=== PATIENT | male | born 1945 | race Caucasian/White ===

== ENCOUNTER 2016-05-19 21:55 | Inpatient (IN) | payer MEDICARE, OTHER ==
[~2016-05-19] VITALS: Ht 172.7 cm; Wt 92.0 kg
[~2016-05-19 21:55] MED LIST: ATOR10; CARV12.5; CEFT250T8 PO; ECOT81TA2; FOSI20; LASI20TA; LORT5TAB PO; WARF7.5; [UNRECOGNIZED DRUG - CODE] BOTH EARS
[2016-05-19] MEDS ORDERED: COUM5TAB PO (22:13)
[2016-05-19] MEDS ORDERED: HYDR-3516 PO (22:13)
[2016-05-19] MEDS ORDERED: FOSI20TA PO (22:13)
[2016-05-19] MEDS ORDERED: LIPI10TA PO (22:13)
[2016-05-19] MEDS ORDERED: FURO20TA PO (22:13)
[2016-05-19] MEDS ORDERED: ASPI1TAB69 PO (22:13)
[2016-05-19 22:15] VITALS: BP 162/59; PULSE 72; RESP 20; TEMP 101.4; O2SAT 93
[2016-05-19] MEDS ORDERED: SODIUM CHLOR 0.9% 1000 ML INJ 1,000 ML IV ONE (22:30)
[2016-05-19 22:52] LABS: AUTOMATED NEUTROPHIL # 9.8 TH/MM3 (1.8-7.7); BASOPHIL # 0.3 TH/MM3 (0-0.2); BASOPHIL % 2.8 % (0.0-2.0); EOSINOPHIL # 0.1 TH/MM3 (0-0.4); EOSINOPHIL % 1.1 % (0.0-4.0); HEMATOCRIT 35.9 % (39.0-51.0); HEMO FLAGS DIFF FINAL; LYMPH % 10.8 % (9.0-44.0); LYMPHOCYTE # 1.3 TH/MM3 (1.0-4.8); MEAN CELL VOLUME 89.1 FL (80.0-100.0); MEAN CORPUSCULAR HGB CONC 34.8 % (32.0-36.0); MONO % 5.4 % (0.0-8.0); NEUT % 79.9 % (16.0-70.0); PLATELET COUNT 167 TH/MM3 (150-450); RED BLOOD COUNT 4.03 MIL/MM3 (4.50-5.90); RED CELL DISTRIBUTION WIDTH 14.2 % (11.6-17.2); WHITE BLOOD COUNT 12.2 TH/MM3 (4.0-11.0)
[2016-05-19 22:56] VITALS: RESP 18; O2SAT 98
[2016-05-19 22:59] LABS: BLOOD, URINE TRACE (NEG); GLUCOSE,URINE NEG (NEG); KETONE, URINE NEG (NEG); NITRITE,URINE NEG (NEG); PH, URINE 5.5 (5.0-8.5)
[2016-05-19 23:00] LABS: CHLORIDE 100 MEQ/L (98-107); POTASSIUM 3.9 MEQ/L (3.5-5.1); SODIUM (NA) 135 MEQ/L (136-145)
[2016-05-19 23:03] LABS: ANION GAP 10 MEQ/L (5-15); BICARBONATE 25.2 MEQ/L (21.0-32.0)
[2016-05-19 23:04] LABS: BLOOD UREA NITROGEN 14 MG/DL (7-18); INTERNATIONAL NORMALIZED RATIO 2.1 RATIO; PROTHROMBIN TIME - PATIENT 24.2 SEC (9.8-11.6)
[2016-05-19 23:06] LABS: URINE COLOR AMBER (YELLW/STRAW)
[2016-05-19 23:07] LABS: ALT (GPT) 30 U/L (12-78); AST (GOT) 19 U/L (15-37); GLOMERULAR FILTRATION RATE 73 ML/MIN (>89)
[2016-05-19 23:07] LABS: COMMENT (UR) CULT NOT INDICATED; CULTURE IF INDICATED CULT NOT INDICATED; RBC, URINE 0-3 /hpf (0-3); SQUAMOUS EPITHELIAL CELL URINE 0-5 /hpf (0-5); WBC, URINE 0-2 /hpf (0-5)
[2016-05-19 23:08] LABS: TOTAL BILIRUBIN ADULT 1.5 MG/DL (0.2-1.0)
--- NOTE | 2016-05-19 23:08 | RADHPO ---
EXAM DATE/TIME: 05/19/2016 22:49 [facility] COMPARISON: No previous studies available for comparison. INDICATIONS : Weakness, body aches and chills starting today MEDICAL HISTORY : None. SURGICAL HISTORY : CABG. Stent placement ENCOUNTER: Initial ACUITY: 1 day PAIN SCORE: 0/10 LOCATION: Bilateral chest FINDINGS: A single view of the chest demonstrates the lungs to be symmetrically aerated without evidence of mas s, infiltrate or effusion. Mild cardiomegaly. Status post median sternotomy and heart valve replaceme nt. The cardiomediastinal contours are unremarkable. Osseous structures are intact. CONCLUSION: 1. No acute cardiopulmonary disease. 2. Cardiomegaly and heart valve replacement. Aki Bhatt MD on May 19, 2016 at 23:05 Board Certified Radiologist. This report was verified electronically.
[2016-05-19 23:09] LABS: ALKALINE PHOSPHATASE 79 U/L (45-117)
[2016-05-19 23:15] VITALS: TEMP 99.2
[2016-05-19] MEDS ORDERED: PIPERACIL-TAZO 4.5 GM PREMIX 100 ML IV ONE (23:30)
[2016-05-19] MEDS ORDERED: VANCOMYCIN INJ 1,000 MG in SODIUM CHLOR 0.9% 250 ML INJ 250 ML IV ONE (23:30)
[2016-05-19] MEDS ORDERED: ACETAMINOPHEN 325 MG TAB PO ONE (23:30)
--- NOTE | 2016-05-19 23:41 | PD ---
HPI Chief Complaint: Fever Time Seen by Provider: 22:12 Travel History International Travel<30 days: No Contact w/Intl Traveler<30days: No Traveled to known affect area: No History of Present Illness HPI 71-year-old male came to the emergency room brought by EMS with history of fever , bad shaking chills that started all of a sudden. His is here and she says that patient was fine up until 2 hours ago when all of a sudden he started shaking violently and complaining that he was cold. She had to cover him with multiple layers of blanket at which point she noticed that his lips were turning blue. Patient was awake and talking the entire time. got anxious and concerned and called 911. His temperature upon arrival was 101.9. Currently patient says that he is sweating a lot and feels actually warm. He is awake and answering questions appropriately. Denies any cough, abdominal pain, vomiting, diarrhea or dysuria. No history of sick contacts. Patient mentioned to me that his right knee which has been replaced couple years ago has been bothering him. [facility] Past Medical History Narrative Medical List of his past medical history reviewed from the nursing note. High Cholesterol: Yes Chemotherapy: Yes Diminished Hearing: No Hypertension: Yes Tetanus Vaccination: < 5 Years Influenza Vaccination: Yes Past Surgical History Abdominal Surgery: Yes (hernia 1998) Cardiac Surgery: Yes (mitral and aortic valve replacement 2002) Coronary Stent: Yes (2001) Tonsillectomy: Yes Social History Alcohol Use: Yes (one mixed drink in a month) Tobacco Use: No Substance Use: No Allergies-Medications (Allergen,Severity, Reaction): Coded Allergies: No Known Allergies (Verified , 05/19/16) Comments No known drug allergies. Reported Meds & Prescriptions Reported Meds & Active Scripts Active Reported Coumadin (Warfarin) 5 Mg Tab 5 Mg PO DAILY Hydrocodone-Acetaminophen 5-325 mg Tab 1 Tab PO Q6H PRN Furosemide 20 Mg Tab 20 Mg PO DAILY Fosinopril (Fosinopril Sodium) 20 Mg Tab 20 Mg PO DAILY Lipitor (Atorvastatin Calcium) 10 Mg Tab 10 Mg PO HS Aspirin 81 Mg Tabdr 81 Mg PO DAILY Narrative Medication List of his home medications reviewed from the nursing note. Review of Systems Except as stated in HPI: all other systems reviewed are Neg Physical Exam Narrative GENERAL: Awake, alert, anxious, mild distress SKIN: Warm and diaphoretic. HEAD: Atraumatic. Normocephalic. EYES: Pupils equal and round. No scleral icterus. No injection or drainage. ENT: No nasal bleeding or discharge. Mucous membranes pink and moist. NECK: Trachea midline. No JVD. CARDIOVASCULAR: Regular rate and rhythm. No murmur appreciated. RESPIRATORY: No accessory muscle use. Clear to auscultation. Breath sounds equal bilaterally. GASTROINTESTINAL: Abdomen soft, non-tender, nondistended. Hepatic and splenic margins not palpable. MUSCULOSKELETAL: No obvious deformities. No clubbing. No cyanosis. No edema. Right knee swelling. No skin erythema or warmth. NEUROLOGICAL: Awake and alert. No obvious cranial nerve deficits. Motor grossly within normal limits. Normal speech. PSYCHIATRIC: Appropriate mood and affect; insight and judgment normal. Data Data Last Documented VS Vital Signs Date Time Temp Pulse Resp B/P Pulse Ox O2 Delivery O2 Flow Rate FiO2 05/19/16 23:15 99.2 05/19/16 22:56 98 Room Air 05/19/16 22:56 18 05/19/16 22:15 72 162/59 Orders Complete Blood Count With Diff (05/19/16 22:21) Comprehensive Metabolic Panel (05/19/16 22:21) Prothrombin Time / Inr (Pt) (05/19/16 22:21) Lactic Acid Sepsis Protocol (05/19/16 22:21) Urinalysis - C+S If Indicated (05/19/16 22:21) Influenzae A/B Antigen (05/19/16 22:21) Blood Culture (05/19/16 22:21) Chest, Single Ap (05/19/16 22:21) Blood Glucose (05/19/16 22:21) Ecg Monitoring (05/19/16 22:21) Iv Access Insert/Monitor (05/19/16 22:21) Oximetry (05/19/16 22:21) Oxygen Administration (05/19/16 22:21) Sodium Chlor 0.9% 1000 Ml Inj (Ns 1000 M (05/19/16 22:30) Acetaminophen (Tylenol) (05/19/16 23:30) Piperacil-Tazo 4.5 Gm Premix (Zosyn 4.5 (05/19/16 23:30) Vancomycin Inj (Vancomycin Inj) (05/19/16 23:30) Aspirin Ec (Ecotrin Ec) (05/20/16 09:00) Atorvastatin (Lipitor) (05/20/16 21:00) Lisinopril (Prinivil) (05/20/16 09:00) Warfarin (Coumadin) (05/20/16 16:00) Admit Order (Ed Use Only) (05/19/16 23:41) Labs Laboratory Tests Test 05/19/16 05/19/16 22:30 22:44 Urine Color JACQUELINE Urine Turbidity CLEAR Urine pH 5.5 Urine Specific [place] 1.020 Urine Protein NEG mg/dL Urine Glucose (UA) NEG mg/dL Urine Ketones NEG mg/dL Urine Occult Blood TRACE Urine Nitrite NEG Urine Bilirubin NEG Urine Leukocyte Esterase NEG Urine RBC 0-3 /hpf Urine WBC 0-2 /hpf Urine Squamous Epithelial 0-5 /hpf Cells Urine Bacteria NONE /hpf Microscopic Urinalysis Comment CULT NOT INDICATED White Blood Count 12.2 TH/MM3 Red Blood Count 4.03 MIL/MM3 Hemoglobin 12.5 GM/DL Hematocrit 35.9 % Mean Corpuscular Volume 89.1 FL Mean Corpuscular Hemoglobin 31.0 PG Mean Corpuscular Hemoglobin 34.8 % Concent Red Cell Distribution Width 14.2 % Platelet Count 167 TH/MM3 Mean Platelet Volume 8.6 FL Neutrophils (%) (Auto) 79.9 % Lymphocytes (%) (Auto) 10.8 % Monocytes (%) (Auto) 5.4 % Eosinophils (%) (Auto) 1.1 % Basophils (%) (Auto) 2.8 % Neutrophils # (Auto) 9.8 TH/MM3 Lymphocytes # (Auto) 1.3 TH/MM3 Monocytes # (Auto) 0.7 TH/MM3 Eosinophils # (Auto) 0.1 TH/MM3 Basophils # (Auto) 0.3 TH/MM3 CBC Comment DIFF FINAL Differential Comment Prothrombin Time 24.2 SEC Prothromb Time International 2.1 RATIO Ratio Sodium Level 135 MEQ/L Potassium Level 3.9 MEQ/L Chloride Level 100 MEQ/L Carbon Dioxide Level 25.2 MEQ/L Anion Gap 10 MEQ/L Blood Urea Nitrogen 14 MG/DL Creatinine 1.00 MG/DL Estimat Glomerular Filtration 73 ML/MIN Rate Random Glucose 125 MG/DL Calcium Level 9.3 MG/DL Total Bilirubin 1.5 MG/DL Aspartate Amino Transf 19 U/L (AST/SGOT) Alanine Aminotransferase 30 U/L (ALT/SGPT) Alkaline Phosphatase 79 U/L Total Protein 7.5 GM/DL Albumin 3.9 GM/DL Lactic Acid Level 2.1 mmol/L MDM Medical Decision Making Medical Screen Exam Complete: Yes Emergency Medical Condition: Yes Medical Record Reviewed: Yes Differential Diagnosis Sepsis, pneumonia, UTI, influenza Narrative Course 11:35 PM blood test results of back and patient has somewhat of a leukocytosis and elevated lactic acid. Patient is receiving IV fluid as per sepsis protocol. Chest x-ray and urine analysis is within normal limits. Influenza was negative. I went back to reassess the patient and talked to the and I noticed that patient was getting his shaking chills again. Repeat temperature was 99.9 oral. Patient does not recall any recent invasive procedures being done since my concern at this point is infective endocarditis since no other source for this infection can be detected. I have ordered IV antibiotic as per sepsis protocol. I would like to admit this patient until the blood culture results come back. In my opinion patient is bacteremic until proven otherwise. Critical Care Narrative Aggregate critical care time was 30 minutes. Time to perform other separately billable procedures was not included in the critical care time. My time did not include minutes spent treating any other patients simultaneously or on activities that did not directly contribute to the patient's treatment. The services I provided to this patient were to treat and/or prevent clinically significant deterioration that could result in: Sepsis, sepsis protocol I provided critical care services requiring my management, as noted below: Chart data review, documentation time, medication orders and management, vital sign assessments/reviewing monitor data, ordering and reviewing lab tests, ordering and interpreting/reviewing x-rays and diagnostic studies, care of the patient and discussion of the patient with the admitting physicians. Procedures EKG Prior to Arrival: No Diagnosis Primary Impression: Sepsis Qualified Code: A41.9 - Sepsis, due to unspecified organism Additional Impressions: Fever Qualified Code: R50.9 - Fever, unspecified fever cause Arthralgia of right knee Admitting Information Admitting Physician Requests: Kaykay Hoang MD May 19, 2016 23:41
[2016-05-19] MEDS ORDERED: NALOXONE HCL 0.4 MG/ML AMP IV PRN (23:45)
[2016-05-19] MEDS ORDERED: SODIUM CHLORIDE 0.9% FLUSH 5 ML FLUSH FLUSH PRN (23:45)
[2016-05-19] MEDS ORDERED: DO NOT ADM ANY ANTICOAGULANT DRUGS XX PRN (23:45)
[2016-05-20] VITALS (9 sets, daily range): BP systolic 114–149; BP diastolic 51–82; PULSE 63–87; RESP 14–18; TEMP 97–104.1; O2SAT 95–99
[2016-05-20 00:44] LABS: LACTIC ACID GHOST NOT REPORTABLE
[2016-05-20] MEDS ORDERED: VANCOMYCIN 1,000 MG/NS 250 ML IV ONE ×2 (01:00)
--- NOTE | 2016-05-20 02:06 | RADHPO ---
EXAM DATE/TIME: 05/20/2016 00:10 [facility] COMPARISON: No previous studies available for comparison. INDICATIONS : Right knee pain starting today with no known trauma MEDICAL HISTORY : None. SURGICAL HISTORY : Total knee replacement, right. ENCOUNTER: Initial ACUITY: 1 day PAIN SCORE: 6/10 LOCATION: Right entire knee FINDINGS: Four view examination of the right knee demonstrates no evidence of fracture or dislocation. Right kn ee arthroplasty. No hardware loosening. Possible small joint effusion. CONCLUSION: Right knee arthroplasty without fracture. There may be a small effusion. Aki Bhatt MD on May 20, 2016 at 2:03 Board Certified Radiologist. This report was verified electronically.
[2016-05-20 05:30] LABS: AUTOMATED NEUTROPHIL # 18.9 TH/MM3 (1.8-7.7); BASOPHIL # 0.1 TH/MM3 (0-0.2); BASOPHIL % 0.5 % (0.0-2.0); EOSINOPHIL % 0.2 % (0.0-4.0); HEMATOCRIT 34.3 % (39.0-51.0); LYMPH % 6.7 % (9.0-44.0); LYMPHOCYTE # 1.5 TH/MM3 (1.0-4.8); MEAN CELL VOLUME 89.3 FL (80.0-100.0); MEAN CORPUSCULAR HEMOGLOBIN 29.8 PG (27.0-34.0); MEAN CORPUSCULAR HGB CONC 33.3 % (32.0-36.0); MONO % 7.9 % (0.0-8.0); NEUT % 84.7 % (16.0-70.0); PLATELET COUNT 155 TH/MM3 (150-450); RED BLOOD COUNT 3.84 MIL/MM3 (4.50-5.90); RED CELL DISTRIBUTION WIDTH 14.1 % (11.6-17.2); WHITE BLOOD COUNT 22.3 TH/MM3 (4.0-11.0)
[2016-05-20 05:33] LABS: HEMO FLAGS DIFF FINAL
[2016-05-20 05:44] LABS: POTASSIUM 4.1 MEQ/L (3.5-5.1)
[2016-05-20] MEDS: PIPERACIL-TAZO 4.5 GM PREMIX 100 ML IV SCH ×3 (06:28→21:57)
[2016-05-20] MEDS ORDERED: ACETAMINOPHEN 500 MG CPLT PO ONE (09:00)
[2016-05-20] MEDS: ENOXAPARIN SODIUM 40 MG/0.4 ML SYRINGE SQ SCH (09:15)
[2016-05-20] MEDS: ASPIRIN EC 81 MG TABEC PO SCH (09:15)
[2016-05-20] MEDS: LISINOPRIL 20 MG TAB PO SCH (09:15)
[2016-05-20] MEDS: SODIUM CHLORIDE 0.9% FLUSH 5 ML FLUSH FLUSH SCH ×2 (09:15→20:40)
[2016-05-20] MEDS ORDERED: Vancomycin Consult Pharmacy 1 EA OTHER SCH ×2 (12:00)
[2016-05-20] MEDS ORDERED: VANCOMYCIN INJ 1,000 MG in SODIUM CHLOR 0.9% 250 ML INJ 250 ML IV SCH (12:00)
--- NOTE | 2016-05-20 12:07 | HHI.HP ---
[facility] Phys[facility] Non-Staff Admission Diagnosis sepsis, fever, right knee arthralgia Diagnoses: Chief Complaint: Sudden onset of fever and chills Travel History International Travel<30 Days: No Contact w/Intl Traveler <30 Da: No Traveled to Known Affected Are: No Sepsis Criteria SIRS Criteria (2 or more): Temp > 100.9 or < 96.8, Heart rate over 90 Severe Sepsis (+one): Hypotension, Lactate >2 Criteria Outcome: Meets SIRS criteria, Meets severe sepsis criteria History of Present Illness This patient is a very pleasant 71-year-old gentleman with a history of mitral and aortic valve replacement and chronic Coumadin therapy. Patient does have an acute onset of fever, chills and shakes which started suddenly. The patient says he was at home and fine until he felt ill. There is been no previous fevers and no sick contacts, no recent procedures in no recent travel. He did have a visit from his grandson over the holiday but was fine up until the day of admission. Patient did have a fever with leukocytosis and his temperature was 1.9 with some tachycardia and the patient was admitted to the hospital with evidence of sepsis. He was given IV antibiotics cultures were taken the patient was admitted upstairs to the hospital. He is not short of breath, he denies chest pain, there is no diarrhea, no rashes, he does complain however of some right knee discomfort. He had a knee replacement done at another facility and noted to have increasing stiffness in the joint. The knee is warm but for the patient that is not unusual for him and he is ambulatory on it without any change in ambulation status. For these reasons the patient's was admitted to the hospital Review of Systems Constitutional: COMPLAINS OF: Diaphoretic episodes, Fever, Chills, Night Sweats , DENIES: Fatigue, Weight gain, Weight loss, Dizziness, Change in appetite Endocrine: DENIES: Heat/cold intolerance, Polydipsia, Polyuria, Polyphagia Eyes: DENIES: Blurred vision, Diplopia, Eye inflammation, Eye pain, Vision loss , Photosensitivity, Double Vision Ears, nose, mouth, throat: DENIES: Tinnitus, Hearing loss, Vertigo, Nasal discharge, Oral lesions, Throat pain, Hoarseness, Ear Pain, Running Nose, Epistaxis, Sinus Pain, Toothache, Odynophagia Respiratory: DENIES: Apneas, Cough, Snoring, Wheezing, Hemoptysis, Sputum production, Shortness of breath Cardiovascular: DENIES: Chest pain, Palpitations, Syncope, Dyspnea on Exertion , PND, Lower Extremity Edema, Orthopnea, Claudication Gastrointestinal: DENIES: Abdominal pain, Black stools, Bloody stools, Constipation, Diarrhea, Nausea, Vomiting, Difficulty Swallowing, Anorexia Genitourinary: DENIES: Sexual dysfunction, Urinary frequency, Urinary incontinence, Urgency, Hematuria, Dysuria, Nocturia, Penile Discharge, Testicular Pain, Testicular Swelling Musculoskeletal: COMPLAINS OF: Joint pain (chronic pain in the right knee), DENIES: Muscle aches, Stiffness, Joint Swelling, Back pain, Neck pain Integumentary: DENIES: Abnormal pigmentation, Nail changes, Pruritus, Rash Hematologic/lymphatic: DENIES: Bruising, Lymphadenopathy Immunologic/allergic: DENIES: Eczema, Urticaria Neurologic: DENIES: Abnormal gait, Headache, Localized weakness, Paresthesias, Seizures, Speech Problems, Tremor, Poor Balance Psychiatric: DENIES: Anxiety, Confusion, Mood changes, Depression, Hallucinations, Agitation, Suicidal Ideation, Homicidal Ideation, Delusions Past Family Social History Past Medical History Aortic/mitral valve replaced CAD with stent HTN Past Surgical History Mitral and aortic valve replaced Coronary stent 2 Tonsillectomy Reported Medications Reviewed in the medical record, no recent new medications Allergies: Coded Allergies: No Known Allergies (Verified , 05/19/16) Active Ordered Medications Reviewed and the medical record Family History Family history of hypertension Social History No tobacco or alcohol dependency, lives with his spouse, no recent travel and no recent procedures Physical Exam Vital Signs Vital Signs Date Time Temp Pulse Resp B/P Pulse Ox O2 Delivery O2 Flow Rate FiO2 05/20/16 09:12 102.0 80 15 131/66 96 05/20/16 07:26 99.8 73 16 122/57 96 Room Air 05/20/16 05:00 82 18 126/68 95 Room Air 05/20/16 05:00 82 18 95 Room Air 05/20/16 03:01 85 18 114/51 95 Room Air 1/12/17 03:01 18 95 Room Air 05/20/16 01:54 100.0 87 18 149/55 96 Room Air 05/20/16 00:57 18 05/20/16 00:27 94 18 96 Room Air 05/20/16 00:27 104.1 85 18 127/75 96 Room Air 05/19/16 23:15 99.2 05/19/16 22:56 98 Room Air 05/19/16 22:56 18 98 Room Air 05/19/16 22:24 20 05/19/16 22:15 101.4 72 20 162/59 93 Physical Exam GENERAL: This is a well-nourished, well-developed patient, fatigued SKIN: No rashes, ecchymoses or lesions. Cool and dry. HEAD: Atraumatic. Normocephalic. No temporal or scalp tenderness. EYES: Pupils equal round and reactive. Extraocular motions intact. No scleral icterus. No injection or drainage. ENT: Nose without bleeding, purulent drainage or septal hematoma. Throat without erythema, tonsillar hypertrophy or exudate. Uvula midline. Airway patent. NECK: Trachea midline. No JVD or lymphadenopathy. Supple, nontender, no meningeal signs. CARDIOVASCULAR: Regular rate and rhythm with a systolic murmur, no gallops, or rubs. RESPIRATORY: Clear to auscultation. Breath sounds equal bilaterally. No wheezes , rales, or rhonchi. GASTROINTESTINAL: Abdomen soft, non-tender, nondistended. No hepato-splenomegaly , or palpable masses. No guarding. MUSCULOSKELETAL: Right knee warm to touch, minimal effusion; Extremities without clubbing, cyanosis, or edema. No joint tenderness, effusion, or edema noted. No calf tenderness. Negative Homans sign bilaterally. NEUROLOGICAL: Awake and alert. Cranial nerves II through XII intact. Motor and sensory grossly within normal limits. Five out of 5 muscle strength in all muscle groups. Normal speech. Laboratory Laboratory Tests Test 05/19/16 05/19/16 05/20/16 05/20/16 22:30 22:44 02:10 05:15 Urine Color JACQUELINE Urine Turbidity CLEAR Urine pH 5.5 Urine Specific [place] 1.020 Urine Protein NEG Urine Glucose (UA) NEG Urine Ketones NEG Urine Occult Blood TRACE Urine Nitrite NEG Urine Bilirubin NEG Urine Leukocyte Esterase NEG Urine RBC 0-3 Urine WBC 0-2 Urine Squamous Epithelial 0-5 Cells Urine Bacteria NONE Microscopic Urinalysis Comment CULT NOT INDICATED White Blood Count 12.2 22.3 Red Blood Count 4.03 3.84 Hemoglobin 12.5 11.4 Hematocrit 35.9 34.3 Mean Corpuscular Volume 89.1 89.3 Mean Corpuscular Hemoglobin 31.0 29.8 Mean Corpuscular Hemoglobin 34.8 33.3 Concent Red Cell Distribution Width 14.2 14.1 Platelet Count 167 155 Mean Platelet Volume 8.6 8.5 Neutrophils (%) (Auto) 79.9 84.7 Lymphocytes (%) (Auto) 10.8 6.7 Monocytes (%) (Auto) 5.4 7.9 Eosinophils (%) (Auto) 1.1 0.2 Basophils (%) (Auto) 2.8 0.5 Neutrophils # (Auto) 9.8 18.9 Lymphocytes # (Auto) 1.3 1.5 Monocytes # (Auto) 0.7 1.8 Eosinophils # (Auto) 0.1 0.0 Basophils # (Auto) 0.3 0.1 CBC Comment DIFF FINAL DIFF FINAL Differential Comment Prothrombin Time 24.2 Prothromb Time International 2.1 Ratio Sodium Level 135 138 Potassium Level 3.9 4.1 Chloride Level 100 104 Carbon Dioxide Level 25.2 25.0 Anion Gap 10 9 Blood Urea Nitrogen 14 12 Creatinine 1.00 0.97 Estimat Glomerular Filtration 73 76 Rate Random Glucose 125 105 Calcium Level 9.3 8.6 Total Bilirubin 1.5 Aspartate Amino Transf 19 (AST/SGOT) Alanine Aminotransferase 30 (ALT/SGPT) Alkaline Phosphatase 79 Total Protein 7.5 Albumin 3.9 Lactic Acid Level 2.1 1.1 Date/Time Procedure Status Source Growth 05/19/16 23:00 Aerobic Blood Culture - Preliminary Resulted Blood Peripheral NO GROWTH IN 1 DAY 05/19/16 23:00 Anaerobic Blood Culture - Preliminary Resulted Blood Peripheral NO GROWTH IN 1 DAY 05/19/16 22:44 Influenza Types A,B Antigen (SHANITA) - Final Complete Nasal Aspirate NEGATIVE FOR FLU A AND B ANTIGEN.... Result Diagram: 05/20/1615 05/20/1615 Imaging Last Impressions Chest X-Ray 05/19/161 Signed Impressions: Service Date/Time: Thursday, May 19, 2016 22:49 - CONCLUSION: 1. No acute cardiopulmonary disease. 2. Cardiomegaly and heart valve replacement. Aki Bhatt MD Knee X-Ray 05/19/16 0000 Signed Impressions: Service Date/Time: May 00:10 - CONCLUSION: Right knee arthroplasty without fracture. There may be a small effusion. Aki Bhatt MD Septic Shock Reassessment Heart: Irregular Lungs: Clear Skin: Warm Peripheral Pulses: Bounding Right Radial Bounding Left Radial Bounding Right Popliteal Bounding Left Popliteal Bounding Right Dorsalis Pedis Bounding Left Dorsalis Pedis Bounding Right Posterior Tibial Bounding Left Posterior Tibial Capillary Refill: Brisk Assessment and Plan Problem List: (1) Sepsis ICD Code: A41.9 Status: Acute Plan: Patient septic rule out endocarditis, echocardiogram pending Right knee does not appear septic Continue IV vancomycin and Zosyn Follow blood cultures Chest x-ray on my review does not show any acute cardiopulmonary processes Urinalysis unremarkable lactic acid improved CRP/ESR pending (2) CAD (coronary artery disease) ICD Code: I25.10 Status: Acute Plan: History of stent 2, follows up with Dr. Ross Patient with a history of mitral and aortic valve replacement with Coumadin therapy, INR 2.1 (3) HTN (hypertension) ICD Code: I10 Status: Acute Code Status full code Discussed Condition With patient, spouse Physician Certification 2 Midnight Certification Type: Admission for Inpatient Services Order for Inpatient Services The services are ordered in accordance with Medicare regulations or non- Medicare payer requirements, as applicable. In the case of services not specified as inpatient-only, they are appropriately provided as inpatient services in accordance with the 2-midnight benchmark. Estimated LOS (days): 5 5 days is the estimated time the patient will need to remain in the hospital, assuming treatment plan goals are met and no additional complications. Post-Hospital Plan: Home Problem Qualifiers (1) Sepsis: Qualified Code: A41.9 - Sepsis, due to unspecified organism Asia Vela MD May 20, 2016 12:07
[2016-05-20] MEDS: VANCOMYCIN INJ 1,900 MG in SODIUM CHLORID 0.9% 500 ML INJ 500 ML IV SCH (17:42)
[2016-05-20] MEDS: WARFARIN SOD 5 MG TAB PO SCH (17:42)
[2016-05-20] MEDS: ATORVASTATIN 10 MG TAB PO SCH (20:38)
[2016-05-20] MEDS: ACETAMINOPHEN 325 MG TAB PO PRN (21:02)
[2016-05-21] VITALS (7 sets, daily range): BP systolic 132–168; BP diastolic 74–83; PULSE 66–82; RESP 15–18; TEMP 98.3–100; O2SAT 93–98
[2016-05-21] MEDS: PIPERACIL-TAZO 4.5 GM PREMIX 100 ML IV SCH ×4 (02:00→20:23)
[2016-05-21] MEDS: ACETAMINOPHEN 325 MG TAB PO PRN ×3 (02:01→20:23)
[2016-05-21] MEDS ORDERED: TEMAZEPAM 7.5 MG CAP PO ONE (02:30)
[2016-05-21] MEDS: ENOXAPARIN SODIUM 40 MG/0.4 ML SYRINGE SQ SCH (09:32)
[2016-05-21] MEDS: LISINOPRIL 20 MG TAB PO SCH (09:32)
[2016-05-21] MEDS: ASPIRIN EC 81 MG TABEC PO SCH (09:32)
[2016-05-21] MEDS: SODIUM CHLORIDE 0.9% FLUSH 5 ML FLUSH FLUSH SCH ×2 (09:33→20:23)
[2016-05-21 10:21] LABS: AUTOMATED NEUTROPHIL # 10.2 TH/MM3 (1.8-7.7); BASOPHIL % 0.3 % (0.0-2.0); EOSINOPHIL % 0.4 % (0.0-4.0); HEMATOCRIT 30.9 % (39.0-51.0); LYMPH % 9.3 % (9.0-44.0); LYMPHOCYTE # 1.1 TH/MM3 (1.0-4.8); MEAN CELL VOLUME 90.9 FL (80.0-100.0); MEAN CORPUSCULAR HEMOGLOBIN 31.1 PG (27.0-34.0); MEAN CORPUSCULAR HGB CONC 34.2 % (32.0-36.0); MONO % 8.5 % (0.0-8.0); NEUT % 81.5 % (16.0-70.0); PLATELET COUNT 130 TH/MM3 (150-450); RED CELL DISTRIBUTION WIDTH 14.8 % (11.6-17.2); WHITE BLOOD COUNT 12.3 TH/MM3 (4.0-11.0)
[2016-05-21 10:27] LABS: HEMO FLAGS DIFF FINAL
--- NOTE | 2016-05-21 10:44 | HHI.PR ---
Subjective Remarks Patient seen today in follow-up for starters /sepsis. Etiology unclear but patient does appear improved. Fever improved, leukocytosis improved. No new complaints overnight. Patient Would like to go home. I did explain to the patient that I am waiting for his blood cultures to continue to remain clear. Echocardiogram is pending today Objective Vitals Vital Signs Date Time Temp Pulse Resp B/P Pulse Ox O2 Delivery O2 Flow Rate FiO2 05/21/16 08:58 100.0 76 15 161/74 94 05/21/16 08:00 82 05/21/16 04:00 99.2 68 16 132/80 93 05/21/16 02:00 99.9 05/20/16 20:00 98.2 75 16 139/82 95 05/20/16 20:00 70 05/20/16 20:00 97.3 65 18 121/66 99 05/20/16 17:30 97.0 63 14 127/63 98 05/20/16 13:42 97.5 74 16 119/58 99 I/O 05/20/16 05/20/16 05/20/16 05/21/16 05/21/16 05/21/16 07:00 15:00 23:00 07:00 15:00 23:00 Intake Total 1700 ml 1280 ml 640 ml Output Total 500 ml 150 ml Balance 1200 ml 1130 ml 640 ml Intake Oral 1280 ml 640 ml IV Total 1700 ml Output Urine Total 500 ml 150 ml # Voids 3 3 # Bowel Movements 0 0 Result Diagram: 05/21/16 0950 05/20/16 0515 Objective Remarks GENERAL: This is a well-nourished, well-developed patient, in no apparent distress. CARDIOVASCULAR: Regular rate and rhythm without murmurs, gallops, or rubs. RESPIRATORY: Clear to auscultation. Breath sounds equal bilaterally. No wheezes , rales, or rhonchi. GASTROINTESTINAL: Abdomen soft, non-tender, nondistended. Normal active bowel sounds MUSCULOSKELETAL: Extremities without clubbing, cyanosis, or edema. NEURO: Alert & Oriented x4 to person, place, time, situation. Moves all ext x4 A/P Problem List: (1) Sepsis ICD Code: A41.9 Status: Acute Plan: Patient septic rule out endocarditis, echocardiogram pending Right knee does not appear septic Continue IV vancomycin and Zosyn Follow blood cultures Chest x-ray on my review does not show any acute cardiopulmonary processes Urinalysis unremarkable lactic acid improved CRP elevated, ESR normal (2) CAD (coronary artery disease) ICD Code: I25.10 Status: Acute Plan: History of stent 2, follows up with Dr. Ross Patient with a history of mitral and aortic valve replacement with Coumadin therapy, INR 2.1 (3) HTN (hypertension) ICD Code: I10 Status: Acute Plan: controlled on lisinopril Discharge Planning pending echo, cultures, fever Problem Qualifiers (1) Sepsis: Qualified Code: A41.9 - Sepsis, due to unspecified organism Asia Vela MD May 21, 2016 10:44
[2016-05-21] MEDS: VANCOMYCIN INJ 1,900 MG in SODIUM CHLORID 0.9% 500 ML INJ 500 ML IV SCH (13:20)
[2016-05-21] MEDS: WARFARIN SOD 5 MG TAB PO SCH (16:53)
[2016-05-21] MEDS ORDERED: MULT400T PO (16:58)
[2016-05-21] MEDS ORDERED: DIGO0.12 PO (16:58)
[2016-05-21] MEDS ORDERED: CARV25TA PO (16:58)
[2016-05-21] MEDS: DRONEDARONE 400 MG TAB PO SCH (20:22)
[2016-05-21] MEDS: ATORVASTATIN 10 MG TAB PO SCH (20:22)
[2016-05-21] MEDS: CARVEDILOL 12.5 MG TAB PO SCH (20:22)
[2016-05-21] MEDS: diphenhydrAMINE HCL 25 MG CAP PO PRN (21:29)
--- NOTE | 2016-05-21 23:01 | EC ---
Study Study Date:05/21/2016 STUDY CONCLUSIONS SUMMARY - Procedure narrative: Transthoracic echocardiography. Image quality was fair. Scanning was performed from the parasternal, apical, and subcostal acoustic windows. - Left ventricle: The cavity size was normal. Wall thickness was increased in a pattern of moderate LVH. Systolic function was normal. The estimated ejection fraction was in the range of 60% to 65%. Wall motion was normal; there were no regional wall motion abnormalities. - Aortic valve: Poorly visualized. Possibly [employer] Rav[employer]ra aortic valve prosthesis, normally functioning. Mean gradient: 17mm Hg (S). - Mitral valve: Normally functioning mitral bioprosthesis. - Tricuspid valve: Mild regurgitation. - Pulmonary arteries: PA peak pressure: 32mm Hg (S). If LV function is below 40, please consider prescribing an ACEI or ARB or document rationale for non-use. PROCEDURE DATA STUDY STATUS: Elective. Procedure: Transthoracic echocardiography. Image quality was fair. Scanning was performed from the parasternal, apical, and subcostal acoustic windows. Study completion: The patient tolerated the procedure well. Transthoracic echocardiography. M-mode, complete 2D, complete spectral Doppler, and color Doppler. Height: Height: 67in. Weight: Weight: 197.6lb. Body mass index: BMI: 31kg/m^2. Body surface area: BSA: 2.01m^2. Patient status: Inpatient. CARDIAC ANATOMY LEFT VENTRICLE: The cavity size was normal. Wall thickness was increased in a pattern of moderate LVH. Systolic function was normal. The estimated ejection fraction was in the range of 60% to 65%. Wall motion was normal; there were no regional wall motion abnormalities. AORTIC VALVE: Poorly visualized. Possibly [employer] Ravindra aortic valve prosthesis, normally functioning. Doppler: Transvalvular velocity was within the normal range. There was no stenosis. No regurgitation. Valve area: 1.53cm^2(VTI). Indexed valve area: 0.76cm^2/m^2 (VTI). Valve area: 1.07cm^2 (Vmax). Indexed valve area: 0.53cm^2/m^2 (Vmax). Mean gradient: 17mm Hg (S). Peak gradient: 31mm Hg (S). AORTA: Aortic root: The aortic root was normal in size. MITRAL VALVE: Normally functioning mitral bioprosthesis. Doppler: Transvalvular velocity was within the normal range. There was no evidence for stenosis. No regurgitation. Valve area by pressure half-time: 1.88cm^2. Indexed valve area by pressure half-time: 0.94cm^2/m^2. Valve area by continuity equation (using LVOT flow): 1.68cm^2. Indexed valve area by continuity equation (using LVOT flow): 0.84cm^2/m^2. Mean gradient: 6mm Hg (D). Peak gradient: 19mm Hg (D). LEFT ATRIUM: The atrium was normal in size. RIGHT VENTRICLE: The cavity size was normal. Wall thickness was normal. PULMONIC VALVE: Doppler: Transvalvular velocity was within the normal range. There was no evidence for stenosis. No regurgitation. TRICUSPID VALVE: Structurally normal valve. Doppler: Transvalvular velocity was within the normal range. Mild regurgitation. PULMONARY ARTERY: The main pulmonary artery was normal-sized. Systolic pressure was within the normal range. RIGHT ATRIUM: The atrium was normal in size. PERICARDIUM: There was no pericardial effusion. SYSTEMIC VEINS: Inferior vena cava: The vessel was normal in size. Patient weight: 197.6lb _Ejection fraction:_ 65-75% _Fractional shortening:_ 32% up to 5Kg 5-11.5Kg 11.6-22.9Kg 23-45Kg 45-57Kg Aortic Root 7-13 <17 13-22 17-27 17-27 LA diam 6-13 <23 24-38 33-47 37-40 RVID 10-17 7-15 7-15 7-18 8-17 LVIDd 12-22 <32 24-38 33-47 37-40 LVPW 2-4 3-6 5-7 6-8 7-8 IVS 2-4 3-6 5-7 6-8 7-8 BASIC MEASUREMENTS ADULT NORMAL Left ventricle LV internal dimension, ED, chordal 44.7 mm 43-52 level, PLAX LV internal dimension, ES, chordal 28 mm 23-38 level, PLAX Fractional shortening, chordal level, 37 % >29 PLAX LV posterior wall thickness, ED 12.8 mm IVS/LVPW ratio, ED 0.99 <1.3 Ventricular septum Septal thickness, ED 12.7 mm Aorta Root diameter, ED 29 mm Left atrium Anterior-posterior dimension 40 mm Anterior-posterior dimension index 1.99 cm/m^2 <2.2 DOPPLER MEASUREMENTS ADULT NORMAL Main pulmonary artery Pressure, S *32 mm Hg =30 Aortic valve Peak velocity, S 279 cm/s Mean velocity, S 192 cm/s VTI, S 44.5 cm Mean gradient, S 17 mm Hg Peak gradient, S 31 mm Hg Valve area, VTI 1.53 cm^2 Valve area index, VTI 0.76 cm^2/m^2 Valve area, Vmax 1.07 cm^2 Valve area index, Vmax 0.53 cm^2/m^2 Mitral valve Peak E-wave velocity 165 cm/s Mean velocity, D 105 cm/s Deceleration time *293 ms 150-230 Pressure half-time 117 ms Mean gradient, D 6 mm Hg Peak gradient, D 19 mm Hg Valve area, pressure half-time 1.88 cm^2 Valve area index, pressure half-time 0.94 cm^2/m^2 Valve area, LVOT continuity 1.68 cm^2 Valve area index, LVOT continuity 0.84 cm^2/m^2 Tricuspid valve Regurgitant peak velocity 268 cm/s Peak RV-RA gradient, S 29 mm Hg Maximal regurgitant velocity 268 cm/s Systemic veins Estimated CVP 5 mm Hg Right ventricle RV pressure, S *34 mm Hg <30 Pulmonic valve Peak velocity, S 63.7 cm/s LEGEND: Mean values are shown as u=mean value. Asterisk (*) rojas values outside specified normal range. Prepared and signed by Frandy Khan [id number]
[2016-05-22 00:29] VITALS: BP 133/67; PULSE 78; RESP 16; TEMP 99.4; O2SAT 100
[2016-05-22] MEDS: PIPERACIL-TAZO 4.5 GM PREMIX 100 ML IV SCH ×4 (02:24→21:27)
[2016-05-22 04:00] VITALS: BP 130/69; PULSE 70; RESP 18; TEMP 99.6; O2SAT 98
[2016-05-22] MEDS: ACETAMINOPHEN 325 MG TAB PO PRN ×3 (04:39→21:25)
[2016-05-22] MEDS ORDERED: PHARMACY ORDERED LAB XX ONE (05:45)
[2016-05-22] MEDS: VANCOMYCIN INJ 1,900 MG in SODIUM CHLORID 0.9% 500 ML INJ 500 ML IV SCH (05:50)
[2016-05-22 07:49] LABS: BASOPHIL % 0.4 % (0.0-2.0); EOSINOPHIL # 0.1 TH/MM3 (0-0.4); EOSINOPHIL % 0.6 % (0.0-4.0); HEMATOCRIT 30.6 % (39.0-51.0); LYMPH % 11.3 % (9.0-44.0); LYMPHOCYTE # 1.2 TH/MM3 (1.0-4.8); MEAN CELL VOLUME 91.2 FL (80.0-100.0); MEAN CORPUSCULAR HEMOGLOBIN 30.1 PG (27.0-34.0); MONO % 9.6 % (0.0-8.0); NEUT % 78.1 % (16.0-70.0); PLATELET COUNT 147 TH/MM3 (150-450); RED BLOOD COUNT 3.36 MIL/MM3 (4.50-5.90); RED CELL DISTRIBUTION WIDTH 14.2 % (11.6-17.2); WHITE BLOOD COUNT 10.3 TH/MM3 (4.0-11.0)
[2016-05-22 07:54] LABS: INTERNATIONAL NORMALIZED RATIO 1.3 RATIO; PROTHROMBIN TIME - PATIENT 14.4 SEC (9.8-11.6)
[2016-05-22 07:55] LABS: HEMO FLAGS DIFF FINAL
[2016-05-22 08:00] VITALS: BP 150/88; PULSE 59; RESP 16; TEMP 97.2; O2SAT 98
[2016-05-22] MEDS: SODIUM CHLORIDE 0.9% FLUSH 5 ML FLUSH FLUSH SCH ×2 (08:17→21:26)
[2016-05-22] MEDS: DRONEDARONE 400 MG TAB PO SCH ×2 (08:20→21:24)
[2016-05-22] MEDS: LISINOPRIL 20 MG TAB PO SCH (08:20)
[2016-05-22] MEDS: ASPIRIN EC 81 MG TABEC PO SCH (08:20)
[2016-05-22] MEDS: DIGOXIN 0.125 MG TAB PO SCH ×2 (08:20→09:00)
[2016-05-22] MEDS: CARVEDILOL 12.5 MG TAB PO SCH ×2 (08:20→21:24)
[2016-05-22] MEDS: ENOXAPARIN SODIUM 40 MG/0.4 ML SYRINGE SQ SCH (08:21)
--- NOTE | 2016-05-22 11:32 | HHI.PR ---
Subjective Remarks Patient seen today in follow-up for presumed endocarditis in a patient with 2 prosthetic cardiac valves and positive blood cultures 3 out of 4. Leukocytosis improved, low-grade temperatures only. Patient feels better in general although today he is complaining of fatigue. Objective Vitals Vital Signs Date Time Temp Pulse Resp B/P Pulse Ox O2 Delivery O2 Flow Rate FiO2 05/22/16 08:00 97.2 59 16 150/88 98 05/22/16 04:00 99.6 70 18 130/69 98 05/22/16 00:29 99.4 78 16 133/67 100 05/21/16 21:29 99.8 67 18 151/83 96 05/21/16 17:53 99.6 66 18 168/82 98 05/21/16 13:35 98.3 66 15 165/82 98 I/O 05/21/16 05/21/16 05/21/16 05/22/16 05/22/16 05/22/16 07:00 15:00 23:00 07:00 15:00 23:00 Intake Total 640 ml 1000 ml 720 ml Output Total 450 ml Balance 640 ml 1000 ml 270 ml Intake Oral 640 ml 1000 ml 720 ml Output Urine Total 450 ml # Voids 3 3 # Bowel Movements 0 Result Diagram: 05/22/16 0625 05/20/16 0515 Objective Remarks GENERAL: This is a well-nourished, well-developed patient, in no apparent distress. CARDIOVASCULAR: Regular rate and rhythm chronic systolic murmurs per patient, no appreciable gallops, or rubs. RESPIRATORY: Clear to auscultation. Breath sounds equal bilaterally. No wheezes , rales, or rhonchi. GASTROINTESTINAL: Abdomen soft, non-tender, nondistended. Normal active bowel sounds MUSCULOSKELETAL: Extremities without clubbing, cyanosis, or edema. NEURO: Alert & Oriented x4 to person, place, time, situation. Moves all ext x4 A/P Problem List: (1) Sepsis ICD Code: A41.9 Status: Acute Plan: Patient septic rule out endocarditis, patient will need FERN. Discussed with infectious disease consult who recommended patient to be transferred to the main hospital for FERN. Cardiology aware Right knee does not appear septic Continue IV vancomycin and Zosyn 3 out of 4bc positive for gram-positive cocci, repeat cultures today to check for clearance Chest x-ray on my review does not show any acute cardiopulmonary processes Urinalysis unremarkable lactic acid improved CRP elevated, ESR normal (2) CAD (coronary artery disease) ICD Code: I25.10 Status: Acute Plan: History of stent 2, AFIB follows up with Dr. Vandana Guaman, lisinopril, coumadin, multaq Patient with a history of mitral and aortic valve replacement with Coumadin therapy, INR 1.3 (likely due to Abx, pharmacy consult) Dig level 0.5, defer to cards for any changes (controlled afib) (3) HTN (hypertension) ICD Code: I10 Status: Acute Plan: controlled on lisinopril, rolly Assessment and Plan transfer to [facility] for FERN Discharge Planning pending FERN, cultures, fever Problem Qualifiers (1) Sepsis: Qualified Code: A41.9 - Sepsis, due to unspecified organism Asia Vela MD May 22, 2016 11:32
[2016-05-22 12:00] VITALS: BP 125/71; PULSE 65; RESP 16; TEMP 98; O2SAT 98
--- NOTE | 2016-05-22 14:55 | PD.CONS ---
HPI Consult Requested By Dr Vela Primary Care Physician Non-Staff Past Family Social History Allergies: Coded Allergies: No Known Allergies (Verified , 05/19/16) Physical Exam Vital Signs Vital Signs Date Time Temp Pulse Resp B/P Pulse Ox O2 Delivery O2 Flow Rate FiO2 05/22/16 12:00 98.0 65 16 125/71 98 05/22/16 08:00 97.2 59 16 150/88 98 05/22/16 04:00 99.6 70 18 130/69 98 05/22/16 00:29 99.4 78 16 133/67 100 05/21/16 21:29 99.8 67 18 151/83 96 05/21/16 17:53 99.6 66 18 168/82 98 Laboratory Laboratory Tests Test 05/22/16 05/22/16 05:50 06:25 Vancomycin Level Trough 9.0 Digoxin Level 0.5 White Blood Count 10.3 Red Blood Count 3.36 Hemoglobin 10.1 Hematocrit 30.6 Mean Corpuscular Volume 91.2 Mean Corpuscular Hemoglobin 30.1 Mean Corpuscular Hemoglobin 33.0 Concent Red Cell Distribution Width 14.2 Platelet Count 147 Mean Platelet Volume 9.4 Neutrophils (%) (Auto) 78.1 Lymphocytes (%) (Auto) 11.3 Monocytes (%) (Auto) 9.6 Eosinophils (%) (Auto) 0.6 Basophils (%) (Auto) 0.4 Neutrophils # (Auto) 8.0 Lymphocytes # (Auto) 1.2 Monocytes # (Auto) 1.0 Eosinophils # (Auto) 0.1 Basophils # (Auto) 0.0 CBC Comment DIFF FINAL Differential Comment Prothrombin Time 14.4 Prothromb Time International 1.3 Ratio Date/Time Procedure Status Source Growth 05/22/16 12:25 Aerobic Blood Culture Received Blood Peripheral Pending 05/22/16 12:25 Anaerobic Blood Culture Received Blood Peripheral Pending 05/19/16 23:00 Aerobic Blood Culture - Preliminary Resulted Blood Peripheral NO GROWTH IN 3 DAYS 05/19/16 23:00 Anaerobic Blood Culture - Preliminary Resulted Viridans Streptococcus Grp 05/19/16 22:44 Influenza Types A,B Antigen (SHANITA) - Final Complete Nasal Aspirate NEGATIVE FOR FLU A AND B ANTIGEN.... Result Diagram: 05/22/16 0625 05/20/16 0515 Assessment and Plan Assessment and Plan Discussed with Dr Vela. Dr Ross plans to do a FERN for endocarditis on Tuesday , he will do a consult once pt is transferred to the Main on Tuesday. Consulting MD and primary comfortable with this arrangement. Ant Larsen MD May 22, 2016 14:54
[2016-05-22 16:00] VITALS: BP 142/74; PULSE 65; RESP 16; TEMP 97.3; O2SAT 98
[2016-05-22] MEDS ORDERED: WARFARIN SOD 2 MG TAB PO ONE (16:00)
[2016-05-22] MEDS: WARFARIN SOD 5 MG TAB PO SCH (16:46)
--- NOTE | 2016-05-22 19:35 | PD.ID.CON ---
History of Present Illness Service ID Consult Requested By Dr Vela Reason for Consult endocarditis, PVE Primary Care Physician Non-Staff Diagnoses: History of Present Illness 71 yo male sp aortic and mitral valve replacement 14 yrs ago developed suddent onset fever/chills x few hrs prio to presentation T amx was 104. 1 on admission Blood clx are growing viridans streop 3/4 bottles 2 D echo was done: mitral valve cw well functioning prosthesis and aortic cvalve is poorly visualised Pt is scheduled for FERN on Tuesday Review of Systems Other as per history of present illness, the rest of 12 point review is negative Past Family Social History Allergies: Coded Allergies: No Known Allergies (Verified , 05/19/16) Past Medical History Aortic/mitral valve replaced CAD with stent HTN Past Surgical History Mitral and aortic valve replaced Coronary stent 2 Tonsillectomy Active Ordered Medications Medications where reviewed in EMR Antibiotics Include: vancomycin zosyn Family History Family history of hypertension Social History No tobacco or alcohol dependency, lives with his spouse, no recent travel and no recent procedures Physical Exam Vital Signs Vital Signs Date Time Temp Pulse Resp B/P Pulse Ox O2 Delivery O2 Flow Rate FiO2 05/22/16 16:00 97.3 65 16 142/74 98 05/22/16 12:00 98.0 65 16 125/71 98 05/22/16 08:00 97.2 59 16 150/88 98 05/22/16 04:00 99.6 70 18 130/69 98 05/22/16 00:29 99.4 78 16 133/67 100 05/21/16 21:29 99.8 67 18 151/83 96 Physical Exam CONSTITUTIONAL/GENERAL: This is an adequately nourished patient, in no apparent distress. TUBES/LINES/DRAINS: SKIN: No jaundice, rashes, or lesions. Skin temperature appropriate. Not diaphoretic. HEAD: Atraumatic. Normocephalic. EYES: Pupils equal and round and reactive. Extraocular motions intact. No scleral icterus. No injection or drainage. Fundi not examined. ENT: Hearing grossly normal. Nose without bleeding or purulent drainage. Throat without visible erythema, exudates, masses, or lesions. NECK: Trachea midline. Supple, nontender. No palpable thyroid enlargement or nodularity. CARDIOVASCULAR: Regular rate and rhythm without murmurs, gallops, or rubs. No JVD. Peripheral pulses symmetric. Well healed median sternotomy scar cw previour cardiac surgery RESPIRATORY/CHEST: Symmetric, unlabored respirations. Clear to auscultation. Breath sounds equal bilaterally. No wheezes, rales, or rhonchi. GASTROINTESTINAL: Abdomen soft, non-tender, nondistended. No hepato-splenomegaly , or palpable masses. No guarding. Bowel sounds present. GENITOURINARY: Without palpable bladder distension. skye. MUSCULOSKELETAL: Extremities without clubbing, cyanosis, or edema. No joint tenderness or effusion noted. No calf tenderness. No mottling or clubbing. LYMPHATICS: No palpable cervical or supraclavicular adenopathy. NEUROLOGICAL: Awake and alert. Motor and sensory grossly within normal limits. Follows commands. Normal speech. Moves all extremities. PSYCHIATRIC: No obvious anxiety/depression. no apparent hallucinations or other psychotic thought process. Laboratory Laboratory Tests Test 05/22/16 05/22/16 05:50 06:25 Vancomycin Level Trough 9.0 Digoxin Level 0.5 White Blood Count 10.3 Red Blood Count 3.36 Hemoglobin 10.1 Hematocrit 30.6 Mean Corpuscular Volume 91.2 Mean Corpuscular Hemoglobin 30.1 Mean Corpuscular Hemoglobin 33.0 Concent Red Cell Distribution Width 14.2 Platelet Count 147 Mean Platelet Volume 9.4 Neutrophils (%) (Auto) 78.1 Lymphocytes (%) (Auto) 11.3 Monocytes (%) (Auto) 9.6 Eosinophils (%) (Auto) 0.6 Basophils (%) (Auto) 0.4 Neutrophils # (Auto) 8.0 Lymphocytes # (Auto) 1.2 Monocytes # (Auto) 1.0 Eosinophils # (Auto) 0.1 Basophils # (Auto) 0.0 CBC Comment DIFF FINAL Differential Comment Prothrombin Time 14.4 Prothromb Time International 1.3 Ratio Date/Time Procedure Status Source Growth 05/22/16 12:25 Aerobic Blood Culture Received Blood Peripheral Pending 05/22/16 12:25 Anaerobic Blood Culture Received Blood Peripheral Pending 05/19/16 23:00 Aerobic Blood Culture - Preliminary Resulted Blood Peripheral NO GROWTH IN 3 DAYS 05/19/16 23:00 Anaerobic Blood Culture - Preliminary Resulted Viridans Streptococcus Grp 05/19/16 22:44 Influenza Types A,B Antigen (SHANITA) - Final Complete Nasal Aspirate NEGATIVE FOR FLU A AND B ANTIGEN.... Result Diagram: 05/22/16 0625 05/20/16 0515 Imaging Last Impressions Chest X-Ray 05/19/16 2221 Signed Impressions: Service Date/Time: Thursday, May 19, 2016 22:49 - CONCLUSION: 1. No acute cardiopulmonary disease. 2. Cardiomegaly and heart valve replacement. Aki Bhatt MD Knee X-Ray 05/19/16 0000 Signed Impressions: Service Date/Time: May 00:10 - CONCLUSION: Right knee arthroplasty without fracture. There may be a small effusion. 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
[2016-05-22 20:43] VITALS: BP 152/84; PULSE 70; RESP 18; TEMP 97.7; O2SAT 99
[2016-05-22] MEDS: diphenhydrAMINE HCL 25 MG CAP PO PRN (21:24)
[2016-05-22] MEDS: ATORVASTATIN 10 MG TAB PO SCH (21:24)
[2016-05-23] VITALS (9 sets, daily range): BP systolic 130–169; BP diastolic 67–75; PULSE 56–81; RESP 18; TEMP 97.6–100.1; O2SAT 95–99
[2016-05-23] MEDS: cefTRIAXone INJ 2,000 MG in SODIUM CHLORIDE 0.9% INJ 100 ML IV SCH (00:23)
[2016-05-23] MEDS: VANCOMYCIN INJ 1,900 MG in SODIUM CHLORID 0.9% 500 ML INJ 500 ML IV SCH ×2 (02:08→18:21)
[2016-05-23] MEDS: ACETAMINOPHEN 325 MG TAB PO PRN ×3 (06:11→21:15)
[2016-05-23] MEDS: ENOXAPARIN SODIUM 40 MG/0.4 ML SYRINGE SQ SCH (08:46)
[2016-05-23] MEDS: DIGOXIN 0.125 MG TAB PO SCH (08:46)
[2016-05-23] MEDS: CARVEDILOL 12.5 MG TAB PO SCH ×2 (08:46→21:33)
[2016-05-23] MEDS: ASPIRIN EC 81 MG TABEC PO SCH (08:46)
[2016-05-23] MEDS: DRONEDARONE 400 MG TAB PO SCH ×2 (08:46→21:15)
[2016-05-23] MEDS: SODIUM CHLORIDE 0.9% FLUSH 5 ML FLUSH FLUSH SCH ×2 (08:47→21:25)
[2016-05-23] MEDS: FUROSEMIDE 20 MG TAB PO SCH (08:47)
[2016-05-23] MEDS: LISINOPRIL 20 MG TAB PO SCH (08:47)
[2016-05-23 11:03] LABS: AUTOMATED NEUTROPHIL # 6.6 TH/MM3 (1.8-7.7); BASOPHIL # 0.1 TH/MM3 (0-0.2); BASOPHIL % 0.7 % (0.0-2.0); EOSINOPHIL # 0.1 TH/MM3 (0-0.4); EOSINOPHIL % 0.9 % (0.0-4.0); HEMATOCRIT 31.6 % (39.0-51.0); HEMO FLAGS DIFF FINAL; LYMPH % 15.6 % (9.0-44.0); LYMPHOCYTE # 1.4 TH/MM3 (1.0-4.8); MEAN CELL VOLUME 90.6 FL (80.0-100.0); MEAN CORPUSCULAR HEMOGLOBIN 30.4 PG (27.0-34.0); MEAN CORPUSCULAR HGB CONC 33.5 % (32.0-36.0); NEUT % 73.8 % (16.0-70.0); PLATELET COUNT 171 TH/MM3 (150-450); RED BLOOD COUNT 3.49 MIL/MM3 (4.50-5.90); RED CELL DISTRIBUTION WIDTH 15.1 % (11.6-17.2); WHITE BLOOD COUNT 8.9 TH/MM3 (4.0-11.0)
[2016-05-23 11:05] LABS: INTERNATIONAL NORMALIZED RATIO 1.4 RATIO
[2016-05-23 11:17] LABS: BICARBONATE 26.6 MEQ/L (21.0-32.0); POTASSIUM 3.7 MEQ/L (3.5-5.1)
--- NOTE | 2016-05-23 14:12 | HHI.PR ---
Subjective Remarks Follow up bacteremia, sepsis. The patient denies chest pain, dyspnea. Does report black stool that started this morning. No apparent red blood. No abdominal pain. Objective Vitals Vital Signs Date Time Temp Pulse Resp B/P Pulse Ox O2 Delivery O2 Flow Rate FiO2 05/23/16 12:17 97.6 69 18 147/67 98 05/23/16 08:55 Room Air 05/23/16 08:04 98.3 62 18 136/72 99 05/23/16 04:00 100.1 75 18 151/71 98 05/23/16 00:15 81 05/23/16 00:00 99.3 77 18 141/67 96 05/22/16 23:30 Room Air 05/22/16 20:43 97.7 70 18 152/84 99 05/22/16 16:00 97.3 65 16 142/74 98 I/O 05/22/16 05/22/16 05/22/16 05/23/16 05/23/16 05/23/16 07:00 15:00 23:00 07:00 15:00 23:00 Intake Total 720 ml 200 ml 240 ml Output Total 450 ml 500 ml Balance 270 ml 200 ml -260 ml Intake Oral 720 ml 240 ml IV Total 200 ml Output Urine Total 450 ml 500 ml # Voids 2 # Bowel Movements 1 Result Diagram: 05/23/16 1046 05/23/16 1046 Imaging Last Impressions Chest X-Ray 05/19/16 2221 Signed Impressions: Service Date/Time: Thursday, May 19, 2016 22:49 - CONCLUSION: 1. No acute cardiopulmonary disease. 2. Cardiomegaly and heart valve replacement. Aki Bhatt MD Knee X-Ray 05/19/16 0000 Signed Impressions: Service Date/Time: May 00:10 - CONCLUSION: Right knee arthroplasty without fracture. There may be a small effusion. Aki Bhatt MD Objective Remarks General: No acute distress. Heart: Regular rate and rhythm. 2/6 systolic murmur. Lungs: Clear to auscultation bilaterally. No wheezes, rales, or rhonchi. Breathing is nonlabored. Abdomen: Soft, nontender, nondistended. Extremities: No lower extremity edema. Psych: Alert and oriented. Urinary Catheter: No Vascular Central Line Catheter: No A/P Problem List: (1) Sepsis ICD Code: A41.9 Status: Acute (2) CAD (coronary artery disease) ICD Code: I25.10 Status: Acute (3) HTN (hypertension) ICD Code: I10 Status: Acute (4) Bacteremia ICD Code: R78.81 Status: Acute Assessment and Plan 1. Sepsis: Patient with bacteremia, viridans strep. Appreciate infectious disease recommendations. Likely endocarditis. Transferred to the main hospital for FERN. Cardiology consult. Continue IV vancomycin, Zosyn. Repeat blood cultures are pending. 2. Coronary artery disease: Currently asymptomatic. Patient has history of mitral and aortic valve replacement. On Coumadin therapy. INR is subtherapeutic. Pharmacy consult to manage Coumadin. Continue Coreg, lisinopril , Coumadin, multaq. 3. Hypertension: Continue lisinopril, Coreg. 4. DVT prophylaxis: Coumadin. 5. Melena: Patient reporting black stools. Check stool hemoccult. Monitor H/H. Problem Qualifiers (1) Sepsis: Qualified Code: A41.9 - Sepsis, due to unspecified organism Pipo Aranda MD May 23, 2016 14:12
[2016-05-23] MEDS ORDERED: WARFARIN SOD 2 MG TAB PO ONE (16:00)
[2016-05-23] MEDS: WARFARIN SOD 5 MG TAB PO SCH (16:49)
[2016-05-23] MEDS ORDERED: PHARMACY ORDERED LAB XX ONE (17:45)
[2016-05-23] MEDS: ATORVASTATIN 10 MG TAB PO SCH (21:15)
[2016-05-23] MEDS: diphenhydrAMINE HCL 25 MG CAP PO PRN (21:15)
[2016-05-24] VITALS: BP 148/80; PULSE 74; RESP 18; TEMP 98.2; O2SAT 97
[2016-05-24] MEDS: cefTRIAXone INJ 2,000 MG in SODIUM CHLORIDE 0.9% INJ 100 ML IV SCH ×2 (00:36→23:40)
[2016-05-24 04:00] VITALS: BP 158/77; PULSE 75; RESP 18; TEMP 98.4; O2SAT 95
[2016-05-24] MEDS: VANCOMYCIN 1,500 MG/NS 500 ML IV SCH ×4 (06:04→17:04)
[2016-05-24] MEDS: ACETAMINOPHEN 325 MG TAB PO PRN ×4 (06:06→21:35)
[2016-05-24 07:15] LABS: BASOPHIL # 0.1 TH/MM3 (0-0.2); BASOPHIL % 0.6 % (0.0-2.0); EOSINOPHIL # 0.1 TH/MM3 (0-0.4); EOSINOPHIL % 0.7 % (0.0-4.0); HEMO FLAGS DIFF FINAL; LYMPH % 12.4 % (9.0-44.0); LYMPHOCYTE # 1.2 TH/MM3 (1.0-4.8); MEAN CELL VOLUME 89.6 FL (80.0-100.0); MEAN CORPUSCULAR HEMOGLOBIN 30.1 PG (27.0-34.0); MEAN CORPUSCULAR HGB CONC 33.6 % (32.0-36.0); MONO % 11.3 % (0.0-8.0); PLATELET COUNT 161 TH/MM3 (150-450); RED BLOOD COUNT 3.24 MIL/MM3 (4.50-5.90); RED CELL DISTRIBUTION WIDTH 15.2 % (11.6-17.2); WHITE BLOOD COUNT 9.3 TH/MM3 (4.0-11.0)
[2016-05-24 07:22] LABS: INTERNATIONAL NORMALIZED RATIO 1.6 RATIO
[2016-05-24 07:30] LABS: BICARBONATE 25.4 MEQ/L (21.0-32.0); POTASSIUM 3.7 MEQ/L (3.5-5.1)
[2016-05-24 08:00] VITALS: BP 161/79; PULSE 64; PULSE 73; RESP 18; TEMP 99.1; O2SAT 96
[2016-05-24] MEDS: CARVEDILOL 12.5 MG TAB PO SCH ×2 (08:24→21:32)
[2016-05-24] MEDS: SODIUM CHLORIDE 0.9% FLUSH 5 ML FLUSH FLUSH SCH ×2 (08:24→21:29)
[2016-05-24] MEDS: DIGOXIN 0.125 MG TAB PO SCH (08:24)
[2016-05-24] MEDS: LISINOPRIL 20 MG TAB PO SCH (08:24)
[2016-05-24] MEDS: FUROSEMIDE 20 MG TAB PO SCH (08:24)
[2016-05-24] MEDS: ASPIRIN EC 81 MG TABEC PO SCH (08:24)
[2016-05-24] MEDS: DRONEDARONE 400 MG TAB PO SCH ×2 (08:25→21:30)
--- NOTE | 2016-05-24 11:05 | HHI.PR ---
Subjective Remarks Follow up bacteremia, sepsis. The patient states that he did have more black stools this morning. Hemoccult is pending. He states that he feels tired. He reports some pain in the center of his chest when taking deep breaths. Mild occasional cough. Objective Vitals Vital Signs Date Time Temp Pulse Resp B/P Pulse Ox O2 Delivery O2 Flow Rate FiO2 05/24/16 08:20 Room Air 05/24/16 08:00 64 05/24/16 08:00 99.1 73 18 161/79 96 05/24/16 04:00 98.4 75 18 158/77 95 05/24/16 00:00 98.2 74 18 148/80 97 05/23/16 23:00 74 05/23/16 20:00 98.1 72 18 169/74 98 05/23/16 20:00 74 05/23/16 19:00 Room Air 05/23/16 16:34 98.6 56 18 130/75 95 05/23/16 15:37 61 05/23/16 12:17 97.6 69 18 147/67 98 I/O 05/23/16 05/23/16 05/23/16 05/24/16 05/24/16 05/24/16 07:00 15:00 23:00 07:00 15:00 23:00 Intake Total 240 ml 720 ml 240 ml 240 ml Output Total 500 ml Balance -260 ml 720 ml 240 ml 240 ml Intake Oral 240 ml 720 ml 240 ml 240 ml Output Urine Total 500 ml # Voids 2 3 3 1 # Bowel Movements 1 1 1 0 Result Diagram: 05/24/16 0617 05/24/16 0617 Imaging Last Impressions Chest X-Ray 05/19/16 2221 Signed Impressions: Service Date/Time: Thursday, May 19, 2016 22:49 - CONCLUSION: 1. No acute cardiopulmonary disease. 2. Cardiomegaly and heart valve replacement. Aki Bhatt MD Knee X-Ray 05/19/16 0000 Signed Impressions: Service Date/Time: May 00:10 - CONCLUSION: Right knee arthroplasty without fracture. There may be a small effusion. Aki Bhatt MD Objective Remarks General: No acute distress. Heart: Regular rate and rhythm. 2/6 systolic murmur. Lungs: Clear to auscultation bilaterally. No wheezes, rales, or rhonchi. Breathing is nonlabored. Abdomen: Soft, nontender, nondistended. Extremities: No lower extremity edema. Psych: Alert and oriented. Urinary Catheter: No Vascular Central Line Catheter: No A/P Problem List: (1) Sepsis ICD Code: A41.9 Status: Acute (2) CAD (coronary artery disease) ICD Code: I25.10 Status: Acute (3) HTN (hypertension) ICD Code: I10 Status: Acute (4) Bacteremia ICD Code: R78.81 Status: Acute Assessment and Plan 1. Sepsis: Patient with bacteremia, cultures positive for viridans strep. Appreciate infectious disease recommendations. Likely endocarditis. Transferred to the main hospital for FERN. Cardiology consult. Continue IV vancomycin, Zosyn. Repeat blood cultures are pending. 2. Coronary artery disease: Currently asymptomatic. Patient has history of mitral and aortic valve replacement. On Coumadin therapy. INR is subtherapeutic. Pharmacy consult to manage Coumadin. Continue Coreg, lisinopril , Coumadin, multaq. 3. Hypertension: Continue lisinopril, Coreg. 4. DVT prophylaxis: Coumadin. 5. Melena: Patient reporting black stools. Stool Hemoccult is pending. H&H slightly decreased today. Monitor labs. Problem Qualifiers (1) Sepsis: Qualified Code: A41.9 - Sepsis, due to unspecified organism Pipo Aranda MD May 24, 2016 11:05
[2016-05-24 12:00] VITALS: BP 115/59; PULSE 53; RESP 18; TEMP 98.7; O2SAT 98
[2016-05-24] MEDS ORDERED: SODIUM CHLORID 0.9% 500 ML INJ 500 ML IV SCH (13:15)
[2016-05-24 16:00] VITALS: BP 149/88; PULSE 57; RESP 18; TEMP 98.1; O2SAT 98
[2016-05-24] MEDS: WARFARIN SOD 5 MG TAB PO SCH (16:06)
[2016-05-24 20:00] VITALS: BP 151/77; PULSE 60; RESP 18; TEMP 97.6; O2SAT 98
[2016-05-24] MEDS: ATORVASTATIN 10 MG TAB PO SCH (21:30)
[2016-05-24] MEDS: diphenhydrAMINE HCL 25 MG CAP PO PRN (21:30)
[2016-05-25] VITALS (8 sets, daily range): BP systolic 155–180; BP diastolic 70–81; PULSE 49–67; RESP 16–22; TEMP 98.1–99.7; O2SAT 92–99
[2016-05-25 01:08] LABS: HEMATOCRIT 28.5 % (39.0-51.0); REVIEW FLAG FINAL
[2016-05-25] MEDS ORDERED: PHARMACY ORDERED LAB XX ONE (05:45)
[2016-05-25 06:07] LABS: AUTOMATED NEUTROPHIL # 8.7 TH/MM3 (1.8-7.7); BASOPHIL # 0.1 TH/MM3 (0-0.2); BASOPHIL % 0.6 % (0.0-2.0); EOSINOPHIL # 0.2 TH/MM3 (0-0.4); EOSINOPHIL % 1.5 % (0.0-4.0); HEMATOCRIT 28.8 % (39.0-51.0); HEMO FLAGS DIFF FINAL; LYMPH % 9.9 % (9.0-44.0); LYMPHOCYTE # 1.1 TH/MM3 (1.0-4.8); MEAN CELL VOLUME 89.7 FL (80.0-100.0); MEAN CORPUSCULAR HGB CONC 33.4 % (32.0-36.0); MONO % 9.2 % (0.0-8.0); NEUT % 78.8 % (16.0-70.0); PLATELET COUNT 184 TH/MM3 (150-450); RED BLOOD COUNT 3.22 MIL/MM3 (4.50-5.90); RED CELL DISTRIBUTION WIDTH 14.9 % (11.6-17.2)
[2016-05-25] MEDS: VANCOMYCIN 1,500 MG/NS 500 ML IV SCH ×4 (06:09→17:21)
[2016-05-25 06:20] LABS: INTERNATIONAL NORMALIZED RATIO 1.9 RATIO; PROTHROMBIN TIME - PATIENT 21.3 SEC (9.8-11.6)
[2016-05-25] MEDS: ACETAMINOPHEN 325 MG TAB PO PRN ×3 (06:23→20:34)
[2016-05-25] MEDS ORDERED: PROPOFOL 200 MG/20 ML AMP IV ONE (08:01)
[2016-05-25] MEDS: SODIUM CHLORIDE 0.9% FLUSH 5 ML FLUSH FLUSH SCH ×2 (09:00→20:22)
[2016-05-25] MEDS: LISINOPRIL 20 MG TAB PO SCH (09:00)
[2016-05-25] MEDS: CARVEDILOL 12.5 MG TAB PO SCH ×2 (09:24→20:21)
[2016-05-25] MEDS: DIGOXIN 0.125 MG TAB PO SCH (09:24)
[2016-05-25] MEDS: ASPIRIN EC 81 MG TABEC PO SCH (09:24)
[2016-05-25] MEDS: DRONEDARONE 400 MG TAB PO SCH ×2 (09:24→20:21)
[2016-05-25] MEDS: FUROSEMIDE 20 MG TAB PO SCH (09:25)
--- NOTE | 2016-05-25 09:56 | HHI.PR ---
Subjective Remarks Follow up bacteremia, anemia. Patient reports mild nausea today. Stools are less dark today. No chest pain or dyspnea. Objective Vitals Vital Signs Date Time Temp Pulse Resp B/P Pulse Ox O2 Delivery O2 Flow Rate FiO2 05/25/16 08:00 99.6 65 22 179/81 92 05/25/16 04:00 99.7 64 18 172/75 94 05/25/16 01:29 63 155/70 05/25/16 00:00 98.2 67 20 178/72 94 05/24/16 21:40 Room Air 05/24/16 20:00 97.6 60 18 151/77 98 05/24/16 20:00 Room Air 05/24/16 16:00 98.1 57 18 149/88 98 05/24/16 12:00 98.7 53 18 115/59 98 I/O 05/24/16 05/24/16 05/24/16 05/25/16 05/25/16 05/25/16 07:00 15:00 23:00 07:00 15:00 23:00 Intake Total 240 ml 732 ml 240 ml 0 ml Balance 240 ml 732 ml 240 ml 0 ml Intake Oral 240 ml 480 ml 240 ml 0 ml IV Total 252 ml # Voids 1 3 3 1 # Bowel Movements 0 1 0 0 Result Diagram: 05/25/16 0549 05/25/16 0549 Imaging Last Impressions Chest X-Ray 05/19/161 Signed Impressions: Service Date/Time: Thursday, May 19, 2016 22:49 - CONCLUSION: 1. No acute cardiopulmonary disease. 2. Cardiomegaly and heart valve replacement. Aki Bhatt MD Knee X-Ray 05/19/16 0000 Signed Impressions: Service Date/Time: May 00:10 - CONCLUSION: Right knee arthroplasty without fracture. There may be a small effusion. Aki Bhatt MD Objective Remarks General: No acute distress. Heart: Regular rate and rhythm. 2/6 systolic murmur. Lungs: Clear to auscultation bilaterally. No wheezes, rales, or rhonchi. Breathing is nonlabored. Abdomen: Soft, nontender, nondistended. Extremities: No lower extremity edema. Psych: Alert and oriented. Urinary Catheter: No Vascular Central Line Catheter: No A/P Problem List: (1) Sepsis ICD Code: A41.9 Status: Acute (2) CAD (coronary artery disease) ICD Code: I25.10 Status: Acute (3) HTN (hypertension) ICD Code: I10 Status: Acute (4) Bacteremia ICD Code: R78.81 Status: Acute Assessment and Plan 1. Sepsis: Patient with bacteremia, cultures positive for viridans strep. Appreciate infectious disease recommendations. Likely endocarditis. Transferred to the main hospital for FERN. Cardiology consult. Continue IV vancomycin, Zosyn. Repeat blood cultures are negative so far. 2. Coronary artery disease: Currently asymptomatic. Patient has history of mitral and aortic valve replacement. On Coumadin therapy. INR is subtherapeutic. Pharmacy consult to manage Coumadin. Continue Coreg, lisinopril , Coumadin, multaq. 3. Hypertension: Continue lisinopril, Coreg. 4. DVT prophylaxis: Coumadin. 5. Anemia: Patient reporting black stools. Stool Hemoccult is negative. H&H low , but stable. Monitor labs. Problem Qualifiers (1) Sepsis: Qualified Code: A41.9 - Sepsis, due to unspecified organism Pipo Aranda MD May 25, 2016 09:56
[2016-05-25] MEDS ORDERED: WARFARIN SOD 4 MG TAB PO SCH (16:00)
[2016-05-25] MEDS: ATORVASTATIN 10 MG TAB PO SCH (20:21)
[2016-05-25] MEDS: diphenhydrAMINE HCL 25 MG CAP PO PRN (20:22)
[2016-05-25] MEDS: cefTRIAXone INJ 2,000 MG in SODIUM CHLORIDE 0.9% INJ 100 ML IV SCH (23:19)
[2016-05-26] VITALS (7 sets, daily range): BP systolic 146–175; BP diastolic 67–82; PULSE 53–92; RESP 18–20; TEMP 97.5–100.3; O2SAT 97–98
[2016-05-26] MEDS ORDERED: PHARMACY ORDERED LAB XX ONE (05:45)
[2016-05-26] MEDS: VANCOMYCIN 1,500 MG/NS 500 ML IV SCH ×2 (05:49)
[2016-05-26 06:17] LABS: INTERNATIONAL NORMALIZED RATIO 2.2 RATIO; PROTHROMBIN TIME - PATIENT 25.3 SEC (9.8-11.6)
[2016-05-26] MEDS: CARVEDILOL 12.5 MG TAB PO SCH ×2 (08:33→20:26)
[2016-05-26] MEDS: FUROSEMIDE 20 MG TAB PO SCH (08:33)
[2016-05-26] MEDS: ASPIRIN EC 81 MG TABEC PO SCH (08:33)
[2016-05-26] MEDS: ACETAMINOPHEN 325 MG TAB PO PRN ×3 (08:33→18:00)
[2016-05-26] MEDS: DRONEDARONE 400 MG TAB PO SCH ×2 (08:33→20:27)
[2016-05-26] MEDS: DIGOXIN 0.125 MG TAB PO SCH (08:33)
[2016-05-26] MEDS: SODIUM CHLORIDE 0.9% FLUSH 5 ML FLUSH FLUSH SCH ×2 (08:34→20:27)
[2016-05-26] MEDS: LISINOPRIL 20 MG TAB PO SCH (09:00)
--- NOTE | 2016-05-26 14:57 | MB ---
cc: JAI OCONNELL MD, HUMAYUN A. M.D. ARAB, DINESH MD DATE OF CONSULTATION: 05/23/2016 HISTORY OF PRESENT ILLNESS Thank you for asking me to see this 71-year-old white male with a history of mitral and aortic valve replacement, on Coumadin therapy. He has been having fever and chills and shakes. He also had a right knee replacement recently and is concerned that he is having pain in that right knee. The knee does not look inflamed or hot. PAST MEDICAL HISTORY Past medical history is positive for: 1. Aortic and mitral valve replacement. 2. CAD. 3. Hypertension. 4. Coronary stents x2. ALLERGIES None. FAMILY HISTORY Family history is positive for hypertension. SOCIAL HISTORY Nonsmoker, nondrinker. No drugs. PHYSICAL EXAMINATION GENERAL: A pleasant gentleman. VITAL SIGNS: His pulse is 77, blood pressure 141, respirations 18. EYES: No xanthelasma. MOUTH: No cyanosis or pallor. NECK: No JVD. HEART: Two heart sounds. No murmurs. CHEST: Clear. ABDOMEN: Soft. No hepatosplenomegaly. EXTREMITIES: Legs reveal no evidence of edema. NEUROLOGIC: Grossly intact. LABORATORY TESTS Chest x-ray showed no acute cardiopulmonary disease. White count was 22.3 which is markedly elevated, hemoglobin 11.4, platelet count 155,000. Sed rate 16. 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 The patient is on antibiotics. Dr. Ross is aware of the pending transesophageal echo and will be scheduling in the next day or two. My understanding is it is going to be scheduled for Tuesday. Thank you kindly for asking us to see this very pleasant gentleman. Ant Larsen MD, FRCP,[facility] /10:17 AM /2:25 PM
--- NOTE | 2016-05-26 15:28 | HHI.PR ---
Subjective Remarks Patient sitting in the chair, he wants to go home Earlier he had a low-grade fever 100.3, he had a FERN yesterday which was negative for vegetation I discussed with him we will need to clear with ID before discharge Objective Vitals Vital Signs Date Time Temp Pulse Resp B/P Pulse Ox O2 Delivery O2 Flow Rate FiO2 05/26/16 08:00 97.5 71 20 147/67 97 05/26/16 08:00 99 Room Air 05/26/16 04:00 100.3 66 18 175/79 98 05/26/16 00:00 98.3 53 18 148/67 97 05/25/16 20:36 54 05/25/16 20:00 98.1 49 16 165/77 93 05/25/16 20:00 Room Air 05/25/16 16:00 98.2 58 18 180/72 99 I/O 05/25/16 05/25/16 05/25/16 05/26/16 05/26/16 05/26/16 07:00 15:00 23:00 07:00 15:00 23:00 Intake Total 0 ml 240 ml 120 ml 120 ml Balance 0 ml 240 ml 120 ml 120 ml Intake Oral 0 ml 240 ml 120 ml 120 ml # Voids 1 4 3 2 # Bowel Movements 0 1 0 0 Result Diagram: 05/25/1649 05/25/1649 Objective Remarks GENERAL: This is a well-nourished, well-developed patient, in no apparent distress. SKIN: No rashes, warm and dry HEAD: Atraumatic. Normocephalic. EYES: Pupils equal round and reactive. Extraocular motions intact. No scleral icterus. ENT: Nose without bleeding, or drainage, Airway patent. NECK: Trachea midline. Supple CARDIOVASCULAR: Regular rate and rhythm without murmurs, gallops, or rubs. RESPIRATORY: Fair air entry bilaterally. No wheezes, rales, or rhonchi. GASTROINTESTINAL: Abdomen soft, non-tender, nondistended. Positive bowel sounds MUSCULOSKELETAL: Extremities without clubbing, cyanosis, or edema. Pedal pulses appreciated NEUROLOGICAL: Awake and alert. Moves all extremity. Normal speech.no focal neurological deficit A/P Problem List: (1) Sepsis ICD Code: A41.9 Status: Acute (2) CAD (coronary artery disease) ICD Code: I25.10 Status: Acute (3) HTN (hypertension) ICD Code: I10 Status: Acute (4) Bacteremia ICD Code: R78.81 Status: Acute Assessment and Plan 1. Sepsis: Patient with bacteremia, cultures positive for viridans strep. Appreciate infectious disease recommendations. Suspected endocarditis. Transferred to the main hospital for FERN. Cardiology consult. As per IV vancomycin, Zosyn. Repeat blood cultures are negative for 4 days Status post FERN 05/25/16 negative for vegetation, currently on Rocephin, will discuss with CESIA Gonzalez 2. Coronary artery disease: Currently asymptomatic. Patient has history of mitral and aortic valve replacement. On Coumadin therapy. INR is subtherapeutic. Pharmacy consult to manage Coumadin. Continue Coreg, lisinopril , Coumadin, multaq. 3. Hypertension: Continue lisinopril, Coreg. 4. DVT prophylaxis: Coumadin. 5. Anemia: Patient reporting black stools. Stool Hemoccult is negative. H&H low , but stable. Monitor labs. Problem Qualifiers (1) Sepsis: Qualified Code: A41.9 - Sepsis, due to unspecified organism Casa Palmer MD May 26, 2016 15:28
--- NOTE | 2016-05-26 15:35 | HHI.FF ---
Infusion Therapy Location of Infusion Therapy: Home Health Care IV Infusion Order Patient Information Patient Weight 91.5 kg Diagnosis: Coded Allergies: Morphine (Verified Allergy, Severe, ams,deep sedation, 05/24/16) Percocet (Verified Allergy, Severe, ams,severe sedation, 05/24/16) Administer Medication Ceftriaxone 2 grams IV q 24 hours Start Treatment: May 27, 2016 Stop Treatment: Jun 05, 2016 Additional Information Venous access: PICC Line Additional Instructions [x] Peripheral flush and dressing changes per protocol [x] Implanted port and central bottling line operator: * Implanted port: 10 ml Normal Saline followed by 5 ml Heparin 100 units/ml Heparin flush after each use and monthly to maintain. [] May leave port accessed during therapy. [] May leave peripheral site accessed for duration of therapy. [x] If patient has SOB or respiratory distress, check oxygen saturation. If less than 90% or clinical signs of respiratory distress, administer oxygen at 2 L/min. via nasal cannula and notify physician. [x] Anaphylaxis/Reaction orders: * Stop infusion. * Keep IV line open with saline flush. * Notify physician. * Monitor vital signs every 15 minutes until symptoms resolve. * Check Oxygen saturation; Oxygen at 2 L/min. via nasal cannula if less than 90% or clinical signs of respiratory distress. * Administer diphenhydramine (Benadryl) 25 mg IV STAT, (unless patient has received as pre-med). May repeat once, if necessary. * Solu-Cortef 250 mg IVP over 30-60 seconds, use 100 mg vials for each dissolution. * Epinephrine (1mg/1 ml) 0.3 mg subcutaneously or IVP now with any signs of respiratory distress. * Check with physician for new additional pre-med orders if patient is re- challenged or re-treated. [x] May remove PICC line when treatment complete, after confirming with Physician. [x] If the patient is admitted to the hospital, the ED, or transferred via [facility] , complete transfer form including medication reconciliation order sheet. Laboratory Tests Weekly Labs: CBC w/diff, Creatinine, LFT's (Hepatic function test) Laxmi Gonzalez MD May 26, 2016 15:35
[2016-05-26] MEDS ORDERED: WARFARIN SOD 3 MG TAB PO SCH (16:00)
--- NOTE | 2016-05-26 17:58 | RADRPT ---
EXAM DATE/TIME: 05/26/2016 17:32 [place] COMPARISON: CHEST SINGLE AP, May 19, 2016, 22:49. INDICATIONS : Post PICC line placement. MEDICAL HISTORY : None. SURGICAL HISTORY : CABG. Stent placement ENCOUNTER: Subsequent ACUITY: 1 day PAIN SCORE: 0/10 LOCATION: Bilateral chest FINDINGS: PICC line has been placed from the right with the tip in the superior vena cava. The heart is enlarg ed. Pulmonary vascularity is normal. Valvular prosthesis is evident. CONCLUSION: PICC line in the superior vena cava. Kuldeep Sahni MD FACR on May 26, 2016 at 17:51 Board Certified Radiologist. This report was verified electronically.
[2016-05-26] MEDS: ATORVASTATIN 10 MG TAB PO SCH (20:26)
--- NOTE | 2016-05-26 20:33 | HHI.IDPN ---
Subjective Subjective Remarks FERN was negative afebrile Antibiotics CFTX Allergies: Coded Allergies: Morphine (Verified Allergy, Severe, ams,deep sedation, 05/24/16) Percocet (Verified Allergy, Severe, ams,severe sedation, 05/24/16) Objective . Vital Signs Date Time Temp Pulse Resp B/P Pulse Ox O2 Delivery O2 Flow Rate FiO2 05/26/16 16:00 97.6 58 20 154/76 97 05/26/16 12:00 97.7 64 20 146/74 97 05/26/16 09:00 66 05/26/16 08:00 97.5 71 20 147/67 97 05/26/16 08:00 99 Room Air 05/26/16 04:00 100.3 66 18 175/79 98 05/26/16 00:00 98.3 53 18 148/67 97 05/25/16 20:36 54 05/25/16 05/25/16 05/26/16 15:00 23:00 07:00 Intake Total 240 ml 120 ml 120 ml Balance 240 ml 120 ml 120 ml Intake Oral 240 ml 120 ml 120 ml # Voids 4 3 2 # Bowel Movements 1 0 0 . Laboratory Tests Test 05/25/16 05/25/16 00:18 05:49 Hemoglobin 9.5 GM/DL 9.6 GM/DL Hematocrit 28.5 % 28.8 % White Blood Count 11.0 TH/MM3 Red Blood Count 3.22 MIL/MM3 Mean Corpuscular Volume 89.7 FL Mean Corpuscular Hemoglobin 30.0 PG Mean Corpuscular Hemoglobin 33.4 % Concent Red Cell Distribution Width 14.9 % Platelet Count 184 TH/MM3 Mean Platelet Volume 9.1 FL Neutrophils (%) (Auto) 78.8 % Lymphocytes (%) (Auto) 9.9 % Monocytes (%) (Auto) 9.2 % Eosinophils (%) (Auto) 1.5 % Basophils (%) (Auto) 0.6 % Neutrophils # (Auto) 8.7 TH/MM3 Lymphocytes # (Auto) 1.1 TH/MM3 Monocytes # (Auto) 1.0 TH/MM3 Eosinophils # (Auto) 0.2 TH/MM3 Basophils # (Auto) 0.1 TH/MM3 CBC Comment DIFF FINAL Differential Comment Laboratory Tests Test 05/25/16 05:49 Creatinine 0.99 MG/DL Estimat Glomerular Filtration 74 ML/MIN Rate Microbiology Date/Time Procedure Status Source Growth 05/24/16 09:35 Stool Occult Blood (SHANITA) - Final Complete Stool Stool HEMOCCULT NEGATIVE Imaging Last Impressions Chest X-Ray 05/19/16 2221 Signed Impressions: Service Date/Time: Thursday, May 19, 2016 22:49 - CONCLUSION: 1. No acute cardiopulmonary disease. 2. Cardiomegaly and heart valve replacement. Aki Bhatt MD Knee X-Ray 05/19/16 0000 Signed Impressions: Service Date/Time: May 00:10 - CONCLUSION: Right knee arthroplasty without fracture. There may be a small effusion. Aki Bhatt MD Physical Exam CONSTITUTIONAL/GENERAL: This is an adequately nourished patient, in no apparent distress. TUBES/LINES/DRAINS: SKIN: No jaundice, rashes, or lesions. Skin temperature appropriate. Not diaphoretic. EYES: Pupils equal and round and reactive. Extraocular motions intact. No scleral icterus. No injection or drainage. Fundi not examined. CARDIOVASCULAR: Regular rate and rhythm without murmurs, gallops, or rubs. No JVD. Peripheral pulses symmetric. Well healed median sternotomy scar cw previour cardiac surgery RESPIRATORY/CHEST: Symmetric, unlabored respirations. Clear to auscultation. Breath sounds equal bilaterally. No wheezes, rales, or rhonchi. GASTROINTESTINAL: Abdomen soft, non-tender, nondistended. No hepato-splenomegaly , or palpable masses. No guarding. Bowel sounds present. GENITOURINARY: Without palpable bladder distension. skye. MUSCULOSKELETAL: Extremities without clubbing, cyanosis, or edema. No joint tenderness or effusion noted. No calf tenderness. No mottling or clubbing. LYMPHATICS: No palpable cervical or supraclavicular adenopathy. NEUROLOGICAL: Awake and alert. Motor and sensory grossly within normal limits. Non focal Assessment & Plan Remarks vridans strep bactermia, high grade, but non sustained - FERN negative - cont CFTX 2 gm daily x 2 weeks - PICC - OPAT form filled out OK to Laxmi Corey MD May 26, 2016 20:33
[2016-05-26] MEDS: cefTRIAXone INJ 2,000 MG in SODIUM CHLORIDE 0.9% INJ 100 ML IV SCH (23:45)
[2016-05-27] VITALS: BP 168/73; PULSE 55; RESP 18; TEMP 98.5; O2SAT 98
[2016-05-27] MEDS ORDERED: VANCOMYCIN INJ 1,750 MG in SODIUM CHLORID 0.9% 500 ML INJ 500 ML IV SCH ×2
[2016-05-27 04:00] VITALS: BP 167/77; PULSE 62; RESP 17; TEMP 97.3; O2SAT 94
[2016-05-27] MEDS: ACETAMINOPHEN 325 MG TAB PO PRN (05:55)
[2016-05-27 06:40] LABS: INTERNATIONAL NORMALIZED RATIO 2.1 RATIO; PROTHROMBIN TIME - PATIENT 24.3 SEC (9.8-11.6)
[2016-05-27 06:52] LABS: BICARBONATE 25.4 MEQ/L (21.0-32.0)
[2016-05-27 06:56] LABS: BASOPHIL # 0.1 TH/MM3 (0-0.2); BASOPHIL % 0.6 % (0.0-2.0); EOSINOPHIL # 0.2 TH/MM3 (0-0.4); HEMATOCRIT 27.3 % (39.0-51.0); HEMO FLAGS DIFF FINAL; LYMPH % 11.8 % (9.0-44.0); LYMPHOCYTE # 1.1 TH/MM3 (1.0-4.8); MEAN CELL VOLUME 88.9 FL (80.0-100.0); MEAN CORPUSCULAR HEMOGLOBIN 30.9 PG (27.0-34.0); MEAN CORPUSCULAR HGB CONC 34.8 % (32.0-36.0); MONO % 8.3 % (0.0-8.0); NEUT % 77.3 % (16.0-70.0); PLATELET COUNT 213 TH/MM3 (150-450); RED BLOOD COUNT 3.07 MIL/MM3 (4.50-5.90); RED CELL DISTRIBUTION WIDTH 14.7 % (11.6-17.2); WHITE BLOOD COUNT 9.1 TH/MM3 (4.0-11.0)
[2016-05-27 08:00] VITALS: BP 178/75; PULSE 66; PULSE 73; RESP 20; TEMP 98.4; O2SAT 96
[2016-05-27] MEDS: DIGOXIN 0.125 MG TAB PO SCH (08:23)
[2016-05-27] MEDS: ASPIRIN EC 81 MG TABEC PO SCH (08:24)
[2016-05-27] MEDS: CARVEDILOL 12.5 MG TAB PO SCH (08:24)
[2016-05-27] MEDS: FUROSEMIDE 20 MG TAB PO SCH (08:24)
[2016-05-27] MEDS: LISINOPRIL 20 MG TAB PO SCH (08:25)
[2016-05-27] MEDS: DRONEDARONE 400 MG TAB PO SCH (08:25)
[2016-05-27] MEDS: SODIUM CHLORIDE 0.9% FLUSH 5 ML FLUSH FLUSH SCH (08:34)
--- NOTE | 2016-05-27 10:30 | HHI.FF ---
Face to Face Verification Diagnosis: (1) Fever (2) Sepsis (3) Bacteremia Home Health Nursing Order: Medical education Nursing assessment with vital signs IV medication administration I have seen patient Aden Kim on 05/27/16. My clinical findings support the need for the requested home health care services because: Infection w/ risk of complications I certify that my clinical findings support that this patient is homebound because: Hx COPD- exertion dyspnea/weakness Unsafe to leave home unassisted Casa Palmer MD May 27, 2016 10:30
[2016-05-27] MEDS ORDERED: COUM3TAB PO (10:32)
[2016-05-27] MEDS ORDERED: POTASSIUM CHLORIDE 20 MEQ CONTROLLED RELEASE TAB PO ONE (12:00)
[2016-05-27] MEDS: cefTRIAXone INJ 2,000 MG in SODIUM CHLORIDE 0.9% INJ 100 ML IV SCH (14:00)
--- NOTE | 2016-05-27 15:12 | HHI.DS ---
Discharge Summary Admission Date May 19, 2016 at 23:42 Discharge Date: May 27, 2016 Admitting Diagnosis sepsis, fever, right knee arthralgia (1) Sepsis ICD Code: A41.9 (2) CAD (coronary artery disease) ICD Code: I25.10 (3) HTN (hypertension) ICD Code: I10 (4) Bacteremia ICD Code: R78.81 Procedures FERN Brief History - From Admission This patient is a very pleasant 71-year-old gentleman with a history of mitral and aortic valve replacement and chronic Coumadin therapy. Patient does have an acute onset of fever, chills and shakes which started suddenly. The patient says he was at home and fine until he felt ill. There is been no previous fevers and no sick contacts, no recent procedures in no recent travel. He did have a visit from his grandson over the holiday but was fine up until the day of admission. Patient did have a fever with leukocytosis and his temperature was 1.9 with some tachycardia and the patient was admitted to the hospital with evidence of sepsis. He was given IV antibiotics cultures were taken the patient was admitted upstairs to the hospital. He is not short of breath, he denies chest pain, there is no diarrhea, no rashes, he does complain however of some right knee discomfort. He had a knee replacement done at another facility and noted to have increasing stiffness in the joint. The knee is warm but for the patient that is not unusual for him and he is ambulatory on it without any change in ambulation status. For these reasons the patient's was admitted to the hospital CBC/BMP: 05/27/16 0555 05/27/16 0555 Significant Findings Laboratory Tests Test 05/25/16 05/25/16 05/26/16 05/27/16 00:18 05:49 05:50 05:55 Hemoglobin 9.5 GM/DL 9.6 GM/DL 9.5 GM/DL (13.0-17.0) (13.0-17.0) (13.0-17.0) Hematocrit 28.5 % 28.8 % 27.3 % (39.0-51.0) (39.0-51.0) (39.0-51.0) Red Blood Count 3.22 MIL/MM3 3.07 MIL/MM3 (4.50-5.90) (4.50-5.90) Neutrophils (%) (Auto) 78.8 % 77.3 % (16.0-70.0) (16.0-70.0) Monocytes (%) (Auto) 9.2 % (0.0-8.0) 8.3 % (0.0-8.0) Neutrophils # (Auto) 8.7 TH/MM3 (1.8-7.7) Monocytes # (Auto) 1.0 TH/MM3 (0-0.9) Prothrombin Time 21.3 SEC 25.3 SEC 24.3 SEC (9.8-11.6) (9.8-11.6) (9.8-11.6) Estimat Glomerular Filtration 74 ML/MIN (>89) 61 ML/MIN (>89) Rate Vancomycin Level Trough 20.0 MCG/ML 23.5 MCG/ML (5.0-10.0) (5.0-10.0) Potassium Level 3.0 MEQ/L (3.5-5.1) Calcium Level 8.3 MG/DL (8.5-10.1) PE at Discharge GENERAL: This is a well-nourished, well-developed patient, in no apparent distress. SKIN: No rashes, warm and dry HEAD: Atraumatic. Normocephalic. EYES: Pupils equal round and reactive. Extraocular motions intact. No scleral icterus. ENT: Nose without bleeding, or drainage, Airway patent. NECK: Trachea midline. Supple CARDIOVASCULAR: Regular rate and rhythm without murmurs, gallops, or rubs. RESPIRATORY: Fair air entry bilaterally. No wheezes, rales, or rhonchi. GASTROINTESTINAL: Abdomen soft, non-tender, nondistended. Positive bowel sounds MUSCULOSKELETAL: Extremities without clubbing, cyanosis, or edema. Pedal pulses appreciated NEUROLOGICAL: Awake and alert. Moves all extremity. Normal speech.no focal neurological deficit Hospital Course Per PT recommendation admitted for bacteremia which was positive for strep. Suspected endocarditis patient started antibiotic, ID consulted, as well as cardiology, FERN has been done, it was negative for vegetation, ID adjusted ideal antibiotic to go home on Rocephin for 2weeks, home health care ordered, heel caser coordinated. [id number] encounter performed with the patient on discharge day, as well as physical exam, summary of hospitalization course and postdischarge plan has been D/W the patient. D/W nurse D/W heel caser. Discharge medications reviewed and printed and signed, post discharge follow up visit with PCP and other specialist as well as Brief hospital course and discharge summary has been placed. Pt Condition on Discharge: Fair Discharge Disposition: Disch w/ Home Health Serv Discharge Time: > 30 minutes Discharge Instructions DIET: Follow Instructions for: Heart Healthy Diet Activities you can perform: Weight Bearing as Umu Follow up Referrals: SNF/[facility]/ with [facility] New Orders: PT/INR - 2-3 Days New Medications: Warfarin (Coumadin) 3 Mg Tab 3 MG PO DAILY@16 . #30 TAB Continued Medications: Aspirin (Aspirin) 81 Mg Tabdr 81 MG PO DAILY TAB Atorvastatin (Lipitor) 10 Mg Tab 10 MG PO HS Cholesterol Management #30 Ref 0 TAB Carvedilol (Carvedilol) 25 Mg Tab 25 MG PO BID #60 Ref 0 TAB Digoxin (Digoxin) 0.125 Mg Tab 0.125 MG PO DAILY Regulate Heart Beat #30 Ref 0 TAB Dronedarone (Multaq) 400 Mg Tab 400 MG PO BID Regulate Heart Beat Ref 0 TAB Fosinopril (Fosinopril) 20 Mg Tab 20 MG PO DAILY #30 Ref 0 TAB Furosemide (Furosemide) 20 Mg Tab 20 MG PO DAILY #30 Ref 0 TAB Discontinued Medications: Warfarin (Coumadin) 5 Mg Tab 5 MG PO DAILY Blood Clot Prevention #30 Ref 0 TAB Casa Palmer MD May 27, 2016 15:12
--- NOTE | 2016-05-27 15:14 | HHI.PR ---
Subjective Remarks Patient seen and examined earlier this morning He is resting comfortably in bed History was at the bedside I do adjusted the antibiotic for home infusion, plan for discharge with home health care for antibiotic infusion Objective Vitals Vital Signs Date Time Temp Pulse Resp B/P Pulse Ox O2 Delivery O2 Flow Rate FiO2 05/27/16 08:00 98.4 66 20 178/75 96 05/27/16 04:00 97.3 62 17 167/77 94 05/27/16 00:00 98.5 55 18 168/73 98 05/26/16 20:00 92 05/26/16 20:00 97.8 57 18 165/82 98 05/26/16 20:00 Room Air 05/26/16 16:00 97.6 58 20 154/76 97 I/O 05/26/16 05/26/16 05/26/16 05/27/16 05/27/16 05/27/16 07:00 15:00 23:00 07:00 15:00 23:00 Intake Total 120 ml 240 ml 480 ml 240 ml Output Total 0 ml Balance 120 ml 240 ml 480 ml 240 ml Intake Oral 120 ml 240 ml 480 ml 240 ml Output Urine Total 0 ml # Voids 2 2 2 # Bowel Movements 0 0 0 0 Result Diagram: 05/27/1655 05/27/1655 Objective Remarks GENERAL: This is a well-nourished, well-developed patient, in no apparent distress. SKIN: No rashes, warm and dry HEAD: Atraumatic. Normocephalic. EYES: Pupils equal round and reactive. Extraocular motions intact. No scleral icterus. ENT: Nose without bleeding, or drainage, Airway patent. NECK: Trachea midline. Supple CARDIOVASCULAR: Regular rate and rhythm without murmurs, gallops, or rubs. RESPIRATORY: Fair air entry bilaterally. No wheezes, rales, or rhonchi. GASTROINTESTINAL: Abdomen soft, non-tender, nondistended. Positive bowel sounds MUSCULOSKELETAL: Extremities without clubbing, cyanosis, or edema. Pedal pulses appreciated NEUROLOGICAL: Awake and alert. Moves all extremity. Normal speech.no focal neurological deficit Procedures FERN A/P Problem List: (1) Sepsis ICD Code: A41.9 Status: Acute (2) CAD (coronary artery disease) ICD Code: I25.10 Status: Acute (3) HTN (hypertension) ICD Code: I10 Status: Acute (4) Bacteremia ICD Code: R78.81 Status: Acute Assessment and Plan 1. Sepsis: Patient with bacteremia, cultures positive for viridans strep. Appreciate infectious disease recommendations. Suspected endocarditis. Transferred to the main hospital for FERN. Cardiology consult. As per IV vancomycin, Zosyn. Repeat blood cultures are negative for 4 days Status post FERN 05/25/16 negative for vegetation, currently on Rocephin, ID adjusted the antibiotic for home infusion, plan for discharge with home health care for antibiotic infusion 2. Coronary artery disease: Currently asymptomatic. Patient has history of mitral and aortic valve replacement. On Coumadin therapy. INR is subtherapeutic. Pharmacy consult to manage Coumadin. Continue Coreg, lisinopril , Coumadin, multaq. 3. Hypertension: Continue lisinopril, Coreg. 4. DVT prophylaxis: Coumadin. 5. Anemia: Patient reporting black stools. Stool Hemoccult is negative. H&H low , but stable. Monitor labs. Problem Qualifiers (1) Sepsis: Qualified Code: A41.9 - Sepsis, due to unspecified organism Casa Palmer MD May 27, 2016 15:14
[2016-05-29] MEDS ORDERED: PHARMACY ORDERED LAB XX ONE (05:45)
--- NOTE | 2016-06-16 11:10 | CF ---
cc: TRENTON CRUZ MD DATE: 05/25/2016 INDICATION Infective endocarditis. PROCEDURE After informed consent, discussion of risks and benefits, the patient was sedated for anesthesia and a multiplane FERN images were obtained. The patient tolerated the procedure well. There were no complications. FERN FINDINGS 1. LV systolic function preserved. 2. EF 50%. 3. RV dilated. RV function at the lower limit of normal. 4. Aortic valve is prosthetic. There is no obvious vegetation seen. There is no significant perivalvular aortic insufficiency. 5. Mitral valve is prosthetic. No vegetation seen. There is mild to moderate mitral stenosis. 6. Tricuspid valve normal in structure. Mild tricuspid insufficiency. 7. Pulmonic valve not well seen. No pericardial effusion. IMPRESSION No definite evidence of endocarditis based on this study. MD RAMIRO Peña/LIBERTAD /2:54 PM /11:00 AM
== END 2016-05-27 15:13 | disposition home health service (06) | DRG 314 ==
LOC: PHEFT 21:55 → PHEDA 23:42 → PHEDH 05-20 03:42 → PH3B 05-20 07:51 → N04B 05-22 23:34
PROVIDERS: ADMIT Hospitalist; ATTEND Hospitalist
PROC: B246ZZ4 Ultrasonography of Right and Left Heart, Transesophageal (ICD-10-PCS; 2016-05-25)
PROC: 02HV33Z Insertion of Infusion Device into Superior Vena Cava, Percutaneous Approach (ICD-10-PCS; principal; 2016-05-26)
PROC: B548ZZA Ultrasonography of Superior Vena Cava, Guidance (ICD-10-PCS; 2016-05-26)
DX: T82.6XXA Infection and inflammatory reaction due to cardiac valve prosthesis, initial encounter (principal); A40.8 Other streptococcal sepsis; K92.1 Melena; D64.9 Anemia, unspecified; I10 Essential (primary) hypertension; I25.10 Atherosclerotic heart disease of native coronary artery without angina pectoris; Z95.5 Presence of coronary angioplasty implant and graft; Z95.2 Presence of prosthetic heart valve; Z79.01 Long term (current) use of anticoagulants; M25.561 Pain in right knee; Y83.1 Surgical operation with implant of artificial internal device as the cause of abnormal reaction of the patient, or of later complication, without mention of misadventure at the time of the procedure
CPT/HCPCS: 36569; 71010; 73564; 76937; 80048; 80053; 80162; 80202; 81001; 82272; 82565; 83605; 85014; 85018; 85025; 85610; 85652; 86140; 87040; 87186; 87205; 87804; 93306; 93312; 93320; 93325; 96360; J0696; J1642; J1650; J2543; J3370; J7030; J7040; J7050